=== PATIENT | male | born 1985 | race Hispanic/Latino ===

== ENCOUNTER → 2018-01-28 | Outpatient (REF) | payer OTHER ==
[2018-01-28 17:45] LABS: ALBUMIN 4.3 GM/DL (3.2-5.2); ALBUMIN/GLOBULIN RATIO 1.19 (1.00-1.93); ALKALINE PHOSPHATASE 78 U/L (45-117); ALT/SGPT 51 U/L (12-78); ANION GAP 10 MEQ/L (8-16); AST/SGOT 34 U/L (7-37); BILIRUBIN,TOTAL 0.4 MG/DL (0.2-1.0); BLOOD UREA NITROGEN 25 MG/DL (7-18); CALCIUM LEVEL 9.2 MG/DL (8.5-10.1); CARBON DIOXIDE LEVEL 26 MEQ/L (21-32); CHLORIDE LEVEL 103 MEQ/L (98-107); CHOLESTEROL LEVEL 190 MG/DL (<200); CREATININE FOR GFR 1.75 MG/DL (0.70-1.30); GLOMERULAR FILTRATION RATE 47.7 (>60); GLUCOSE, FASTING 102 MG/DL (70-100); HDL CHOLESTEROL 46 MG/DL (>40); NON-HDL-C 144 MG/DL; POTASSIUM SERUM 4.5 MEQ/L (3.5-5.1); SODIUM LEVEL 139 MEQ/L (136-145); TOTAL PROTEIN 7.9 GM/DL (6.4-8.2); TRIGLYCERIDES LEVEL 543 MG/DL (<150)
[2018-01-28 17:46] LABS: PTH INTACT 72.8 PG/ML (18.5-88.0)
== END ==
LOC: M SFHCPLAZ 15:03
DX: N18.3 Chronic kidney disease, stage 3 (moderate) (principal); E78.5 Hyperlipidemia, unspecified; E55.9 Vitamin D deficiency, unspecified

== ENCOUNTER → 2018-02-03 | Outpatient (CLI) | payer OTHER | LOC: M RAD 07:46 | DX: M54.5 Low back pain (principal); M51.34 Other intervertebral disc degeneration, thoracic region; M51.36 Other intervertebral disc degeneration, lumbar region; M51.37 Other intervertebral disc degeneration, lumbosacral region | CPT/HCPCS: 72110 ==

== ENCOUNTER → 2018-02-11 | Outpatient (CLI) | payer OTHER | LOC: M RAD 08:31 | DX: M25.572 Pain in left ankle and joints of left foot (principal) | CPT/HCPCS: 73610 ==

== ENCOUNTER → 2018-08-19 | Outpatient (CLI) | payer OTHER | LOC: M RAD 08:51 | DX: M51.36 Other intervertebral disc degeneration, lumbar region (principal); M51.26 Other intervertebral disc displacement, lumbar region; E88.2 Lipomatosis, not elsewhere classified | CPT/HCPCS: 72148 ==

== ENCOUNTER 2018-09-01 07:23 | Outpatient (RCR) | payer OTHER | END 2018-09-14 | LOC: M PT 07:23 | DX: Z51.89 Encounter for other specified aftercare (principal); M51.36 Other intervertebral disc degeneration, lumbar region | CPT/HCPCS: 97010 ==

== ENCOUNTER → 2018-11-30 | Outpatient (REF) | payer OTHER ==
[~2018-11-30] MED LIST: ACET500C OR; AMLO10TA OR; AMLO10TAB OR; CARV12.5 OR; HYDR25TA7 OR; LASI40TA OR; LISI40TA OR; No Historical Meds; SIMV20TA2 OR; SPIR50TA2 OR; chlorthalidone PO
[2018-11-30 10:19] LABS: BASO # 0.1 10^3/uL (0.0-0.2); BASO % 0.6 % (0.0-1.0); EOS # 0.2 10^3/uL (0.0-0.50); EOS % 2.3 % (0.0-3.0); HEMATOCRIT 43.9 % (42.0-52.0); HEMOGLOBIN 14.7 g/dl (13.5-17.5); LYMPH # 3.5 10^3/uL (1.5-4.5); MEAN CORPUSCULAR HEMOGLOBIN 29.1 pg (27.0-33.0); MEAN CORPUSCULAR HGB CONC 33.5 g/dl (32.0-36.5); MEAN CORPUSCULAR VOLUME 86.8 fl (80.0-96.0); MONO # 0.8 10^3/uL (0.0-0.8); MONO % 8.8 % (0.0-5.0); NEUTROPHILS # 4.2 10^3/uL (1.8-7.7); NEUTROPHILS % 47.8 % (36.0-66.0); PLATELET COUNT, AUTOMATED 284 10^3/uL (150-450); RED BLOOD COUNT 5.06 10^6/uL (4.30-6.10); WHITE BLOOD COUNT 8.8 10^3/uL (4.0-10.0)
[2018-11-30 10:21] LABS: APPEARANCE, URINE CLEAR (CLEAR); BACTERIA, URINE AUTO NEGATIVE (NEGATIVE); BILIRUBIN, URINE AUTO NEGATIVE (NEGATIVE); BLOOD, URINE BLOOD NEGATIVE (NEGATIVE); COLOR, URINE YELLOW (YELLOW); GLUCOSE, URINE (UA) AUTO NEGATIVE (NEGATIVE); KETONE, URINE AUTO NEGATIVE (NEGATIVE); LEUKOCYTE ESTERASE, URINE AUTO NEGATIVE (NEGATIVE); NITRITE, URINE AUTO NEGATIVE (NEGATIVE); PROTEIN, URINE AUTO NEGATIVE (NEGATIVE); RBC, URINE AUTO 3 /HPF (0-3); SPECIFIC GRAVITY URINE AUTO 1.015 (1.002-1.035); SQUAMOUS EPITHELIAL CELL UR AU 0 /HPF (0-6); UROBILINOGEN, URINE AUTO 0.2 mg/dL (0.0-2.0); WBC, URINE AUTO 0 /HPF (0-3)
[2018-11-30 10:42] LABS: BILIRUBIN,TOTAL 0.3 MG/DL (0.2-1.0); CALCIUM LEVEL 9.3 MG/DL (8.5-10.1); CHOLESTEROL RISK RATIO 3.536 (<5); CREATININE FOR GFR 1.56 MG/DL (0.70-1.30); GLOMERULAR FILTRATION RATE 54.2 (>60); MAGNESIUM LEVEL 2.1 MG/DL (1.8-2.4); POTASSIUM SERUM 4.4 MEQ/L (3.5-5.1); TOTAL PROTEIN 7.2 GM/DL (6.4-8.2)
[2018-11-30 10:50] LABS: MALB URINE SIEMENS 29.6 MG/L; MAU/CREAT RATIO 20.1 MCG/MG (0.0-30.0)
[2018-11-30 10:55] LABS: TOTAL 25(OH) VITAMIN D 65.2 NG/ML (30.0-100.0)
[2018-11-30 10:56] LABS: PTH INTACT 58.5 PG/ML (18.5-88.0)
== END ==
LOC: M SFHCPLAZ 08:35
PROVIDERS: ATTEND Nurse Practitioner Family
DX: N18.3 Chronic kidney disease, stage 3 (moderate) (principal); E78.5 Hyperlipidemia, unspecified; I12.9 Hypertensive chronic kidney disease with stage 1 through stage 4 chronic kidney disease, or unspecified chronic kidney disease; E55.9 Vitamin D deficiency, unspecified

== ENCOUNTER 2021-08-30 06:32 | Inpatient (IN) | payer OTHER ==
[2021-08-30] VITALS (8 sets, daily range): BP systolic 143–170; BP diastolic 67–98
[~2021-08-30] VITALS: Ht 175.3 cm; Wt 112.6 kg
--- OUTSIDE RECORDS SUMMARY | 2021-08-30 06:44 | CCD ---
Author Author [facility] Organization [facility] Address Unknown Phone Unavailable Support Name Relationship Address Phone Ashley Munoz DDS Next Of Kin [address] [place], [place] [phone] UE Next Of Kin Unknown Unavailable UNEMPLOYED Next Of Kin Unknown JAMESSHAHZAD WINNLY Next Of Kin [address] [place] [address] [address] [place] [address] DEIDRE COLLINS ECON [address] [place] [address] Unavailable Re-disclosure Warning The records that you are about to access may contain information from federally-assisted alcohol or drug abuse programs. If such information is present, then the following federally mandated warning applies: This information has been disclosed to you from records protected by federal confidentiality rules (42 CFR part 2). The federal rules prohibit you from making any further disclosure of this information unless further disclosure is expressly permitted by the written consent of the person to whom it pertains or as otherwise permitted by 42 CFR part 2. A general authorization for the release of medical or other information is NOT sufficient for this purpose. The Federal rules restrict any use of the information to criminally investigate or prosecute any alcohol or drug abuse patient.The records that you are about to access may contain highly sensitive health information, the redisclosure of which is protected by Article 27-F of the [facility] Public Health law. If you continue you may have access to information: Regarding HIV / AIDS; Provided by facilities licensed or operated by the [facility] Office of Mental Health; or Provided by the [facility] Office for People With Developmental Disabilities. If such information is present, then the following [facility] mandated warning applies: This information has been disclosed to you from confidential records which are protected by state law. State law prohibits you from making any further disclosure of this information without the specific written consent of the person to whom it pertains, or as otherwise permitted by law. Any unauthorized further disclosure in violation of state law may result in a fine or alf sentence or both. A general authorization for the release of medical or other information is NOT sufficient authorization for further disc losure. Medications No Information Insurance Providers Payer name Policy type / Coverage type Policy ID Covered republican ID Covered republican's relationship to anderson Policy Anderson Plan Information [facility] [id number] SP [id number] Managed Care - [facility] P [id number] S [id number] Managed Care - [facility] P [id number] S [id number] [facility] [id number] SP [id number] [facility] O [id number] S [id number] ANSI-Medicaid [id number] ANSI-Medicaid [id number] ANSI-Medicaid [id number] [facility] [id number] SP [id number] ANSI-Medicaid [id number] ANSI-Medicaid [id number] [facility]-Medicaid [id number] Problems, Conditions, and Diagnoses No Information Surgeries/Procedures No Information Results No Information Social History No Information
--- OUTSIDE RECORDS SUMMARY | 2021-08-30 07:43 | CCD ---
Author Author [facility] Organization [facility] Address Unknown Phone Unavailable Support Name Relationship Address Phone Ashley Munoz DDS Next Of Kin [address] [place], [place] [phone] UE Next Of Kin Unknown Unavailable UNEMPLOYED Next Of Kin Unknown DEIDRE COLLINS Next Of Kin [address] [place] [address] [place] [address] DEIDRE COLLINS ECON [address] [place] [address] Unavailable Re-disclosure Warning The records that you [...] is protected by Article 27-F of the [facility] Public Health law. If you continue you may have access to information: Regarding HIV / AIDS; Provided by facilities licensed or operated by the [facility] Office of Mental Health; or Provided by the [facility] Office for People With Developmental Disabilities. If such information is present, then the following [facility] mandated warning applies: This information has been [...] law may result in a fine or shelter sentence or both. A general authorization for the release of medical or other information is NOT sufficient authorization for further disc losure. Medications No Information Insurance Providers Payer name Policy type / Coverage type Policy ID Covered democrat ID Covered democrat's relationship to anderson Policy Anderson Plan Information [facility] [id number] SP [id number] Managed Care - [facility] P [id number] S [id number] Managed Care - [facility] P [id number] S [id number] [facility] [id number] SP [id number] [facility] O [id number] S [id number] ANSI-Medicaid [id number] ANSI-Medicaid [id number] ANSI-Medicaid [id number] [facility] [id number] SP [id number] ANSI-Medicaid [id number] ANSI-Medicaid [id number] [facility]-Medicaid [id number] Problems, Conditions, and Diagnoses No Information Surgeries/Procedures No Information Results No Information Social History No Information
--- NOTE | 2021-08-30 08:13 | ECGEPIP ---
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
[2021-08-30 08:16] LABS: BASO # 0.1 10^3/uL (0.0-0.2); EOS # 0.2 10^3/uL (0.0-0.5); EOS % 2.4 % (0.0-3.0); HEMOGLOBIN 18.3 g/dl (13.5-17.5); LYMPH # 2.5 10^3/uL (1.5-5.0); MEAN CORPUSCULAR HEMOGLOBIN 29.6 pg (27.0-33.0); MEAN CORPUSCULAR HGB CONC 35.2 g/dl (32.0-36.5); MEAN CORPUSCULAR VOLUME 84.1 fl (80.0-96.0); MONO # 0.6 10^3/uL (0.0-0.8); MONO % 6.8 % (2.0-8.0); NEUTROPHILS # 4.9 10^3/uL (1.5-8.5); NEUTROPHILS % 59.4 % (36.0-66.0); PLATELET COUNT, AUTOMATED 240 10^3/uL (150-450); RED BLOOD COUNT 6.18 10^6/uL (4.30-6.10); WHITE BLOOD COUNT 8.2 10^3/uL (4.0-10.0)
[2021-08-30 08:27] LABS: INR 0.92; PROTHROMBIN TIME 12.8 SECONDS (12.7-14.5)
[2021-08-30 08:28] LABS: PARTIAL THROMBOPLASTIN TIME 29.5 SECONDS (25.9-37.0)
[2021-08-30] MEDS: niCARdipine IV 40 MG in IV 1 EA IV SCH ×4 (08:29→23:59)
[2021-08-30 08:38] LABS: BLOOD UREA NITROGEN 23 MG/DL (7-18); CALCIUM LEVEL 8.9 MG/DL (8.5-10.1); CARBON DIOXIDE LEVEL 30 MEQ/L (21-32); CHLORIDE LEVEL 107 MEQ/L (98-107); CPK CREATINE PHOSPHOKINASE 296 U/L (39-308); CREATININE FOR GFR 1.87 MG/DL (0.70-1.30); GLOMERULAR FILTRATION RATE 43.2 (>60); GLUCOSE, FASTING 87 MG/DL (70-100); MB/CK RELATIVE INDEX 0.68 (< OR =4); SODIUM LEVEL 140 MEQ/L (136-145); TROPONIN I < 0.02 NG/ML (< 0.10)
--- NOTE | 2021-08-30 08:44 | REPVR ---
PROCEDURE INFORMATION: Exam: CT Head Without Contrast Exam date and time: 08/30/2021 7:02 AM Age: 36 years old Clinical indication: Numbness / parasthesia; Additional info: Right sided parasthesia x 24 hours TECHNIQUE: Imaging protocol: Computed tomography of the head without contrast. Radiation optimization: All CT scans at this facility use at least one of these dose optimization techniques: automated exposure control; mA and/or kV adjustment per patient size (includes targeted exams where dose is matched to clinical indication); or iterative reconstruction. COMPARISON: No relevant prior studies available. FINDINGS: Brain: Examination of the brain demonstrates normal structure and attenuation.The cortical salas / white matter interfaces are preserved throughout the brain.No acute infarction, masses or hemorrhage is seen. Cerebral ventricles: The ventricular system is not dilated and is appropriate for the patient's age. Paranasal sinuses: Visualized sinuses are unremarkable. No fluid levels. Mastoid air cells: Visualized mastoid air cells are well aerated. Bones/joints: Unremarkable. No acute fracture. Soft tissues: Unremarkable. IMPRESSION: 1. No acute infarction, masses or hemorrhage is seen. No acute intracranial abnormality is identified. 2. Estefani Stroke Program Early CT Score (ASPECTS) = 10 Electronically signed by: Federico Burrell On 08/30/2021 08:43:21 AM
--- NOTE | 2021-08-30 08:46 | REPVR ---
PROCEDURE INFORMATION: Exam: XR Chest Exam date and time: 08/30/2021 6:56 AM Age: 36 years old Clinical indication: Chest wall pain; Additional info: CVA TECHNIQUE: Imaging protocol: XR of the chest. Views: 1 view. COMPARISON: CR Shoulder, complete 02/03/2018 8:24 AM FINDINGS: Lungs: No acute infiltrate is seen. Pleural spaces: No pneumothorax or pleural effusion is seen. Heart/Mediastinum: No cardiomegaly. Bones/joints: The visualized osseous structures are unremarkable. No acute fracture or dislocation is seen. IMPRESSION: No acute infiltrate, pneumothorax or pleural effusion is seen. Electronically signed by: Federico Burrell On 08/30/2021 08:46:23 AM
[2021-08-30] MEDS ORDERED: ASPIRIN 325 MG TAB PO SCH (09:00)
[2021-08-30] MEDS ORDERED: ASPIRIN 81 MG CHEW TABLET PO ONE (09:20)
[2021-08-30] MEDS ORDERED: HOME MED LIST COMPLETE! XX SCH (09:45)
--- NOTE | 2021-08-30 10:25 | HPEPDOC ---
[facility] Medical History & Physical Date of Admission Aug 30, 2021 Date of Service: Aug 30, 2021 History and Physical CHIEF COMPLAINT: " My right side went numb and I was unsteady" HISTORY OF PRESENT ILLNESS: 36-year-old male with a past medical history of hypertension, hyperlipidemia, right eye blindness (has not seek medical attention for this), and chronic kidney disease presented to emergency room department with complaints of right- sided weakness, qbia-rgk-qeadzbd, and unsteady gait. On 08/29 around noon patient was sitting on his sofa and began to feel numb in his entire right arm as well as right leg and when he tried to stand he felt unsteady. He thought the symptoms would resolve therefore did not seek medical attention. However, this morning he was spearing seeing same symptoms therefore came to the emergency room department for further evaluation. Patient reports he stopped seeing his primary care physician after he lost weight and was feeling better he thought he did not need to be on any me dications. In the emergency room department he was hypertensive and placed on nicardipine drip and was admitted to rule out stroke. PAST MEDICAL HISTORY: 1. Hypertension 2. CKD 3. Right eye blindness, not medically evaluated. 4. HLD PAST SURGICAL HISTORY: 1. Right ankle fracture in 2000 SOCIAL HISTORY: Lives at home with his significant other (not but has been with her for 14 years). Smokes 2 cigars/day. Denies drinking or recreational drug use FAMILY HISTORY: Noncontributory ALLERGIES: Please see below. REVIEW OF SYSTEMS: 10 point review of system was negative except for what is noted in the HPI HOME MEDICATIONS: Please see below. PHYSICAL EXAMINATION: VITAL SIGNS: Please see below General: Lying in bed, no acute distress Head/Neck/Throat: Trachea midline, mucous membranes moist Eyes: Sclera anicteric, no erythema or discharge appreciated bilateral Thorax: Normal respiratory effort on room air, lungs clear to auscultation bilaterally, no wheezes/rales/rhonchi Cardiovascular: Normal rate, regular rhythm, normal S1, S2; no S3, S4, rubs/gallops/murmurs Abdomen: Bowel sounds present, soft/nontender/nondistended Genitourinary: No CVA tenderness, no Sampson in place Musculoskeletal: Moving all extremities, no edema Skin: Warm, dry Neurologic: AAOx3. Cranial nerves II to XII intact. Strength in the left upper and lower extremities 5/5. Within the right upper and lower extremity is 4/5. Cerebellar examination including srxcdy-wn-vehq, and mudz-cp-njdd intact however slower on the right. Swelling appreciated when patient is asked to stand. Patellar and biceps reflex 2+. Sensation to gross touch intact. LABORATORY DATA: See below. IMAGING: Please see imaging section MICROBIOLOGY: Please see below. ASSESSMENT/PLAN: #CVA -Acute lacunar infarct appreciated on MRI and acute left pontine infarct. There is a small focal of increased signal in the bilateral basal ganglia, bilateral frontal and parietal subcortical and deep white matter which is likely related to his uncontrolled blood pressure. -MRA did not show any stenosis or occlusion. Ultrasound of carotid arteries is pending. -Patient was started on nicardipine drip due bp of 251/163, goal to keep bp below 220/120 but allow for permissive hypertension - goal 160-180 systolic blood pressure for the first 24 hours. -Echocardiogram with agitated saline to rule out PFO. -PT/OT -Aspirin, statin -Follow-up on TSH and B12 #Hypertensive emergency -Plan as above #Chronic kidney disease -Baseline creatinine is around 1.5-1.9. Today, creatinine is 1.87. When nephrotoxic medications. Follow-up on renal ultrasound. #Hyperlipidemia -Follow-up on lipid profile. Continue statin therapy. #Right eye blindness -He has had this for approximately a year it started off his progressive but he did not seek any medical attention. #DVT prophylaxis -Heparin subcu Vital Signs Vital Signs Date Time Temp Pulse Resp B/P (MAP) Pulse Ox O2 Delivery O2 Flow Rate FiO2 08/30/21 10:17 105 08/30/21 10:00 192/117 (142) 08/30/21 08:02 98 08/30/21 06:35 97.6 18 Room Air Laboratory Data Labs 24H Laboratory Tests 2 08/30/21 07:44: Immature Granulocyte % (Auto) 0.4, Neutrophils (%) (Auto) 59.4, Lymphocytes (%) (Auto) 30.0, Monocytes (%) (Auto) 6.8, Eosinophils (%) (Auto) 2.4, Basophils (%) (Auto) 1.0, Neutrophils # (Auto) 4.9, Lymphocytes # (Auto) 2.5, Monocytes # (Auto) 0.6, Eosinophils # (Auto) 0.2, Basophils # (Auto) 0.1, Nucleated Red Blood Cells % (auto) 0.0, Prothrombin Time 12.8, Prothromb Time International Ratio 0.92, Activated Partial Thromboplast Time 29.5, Anion Gap 3L, Glomerular Filtration Rate 43.2L, Calcium Level 8.9, Total Creatine Kinase 296, Creatine Kinase MB 2.0, Creatine Kinase MB Relative Index 0.68, Troponin I < 0.02 08/30/21 09:15: CBC/BMP Laboratory Tests 08/30/21 07:44 Home Medications No Active Prescriptions or Reported Meds Allergies Coded Allergies: No Known Allergies (Unverified , 08/30/21) A-FIB/CHADSVASC A-FIB History Current/History of A-Fib/PAF?: No AI GUTIERREZ M.D. Aug 30, 2021 10:25
[2021-08-30 10:35] LABS: RSV AMPLIFICATION NEGATIVE (NEGATIVE)
--- OUTSIDE RECORDS SUMMARY | 2021-08-30 10:43 | CCD ---
Author Author [facility] Organization [facility] Address Unknown Phone Unavailable Support Name Relationship Address Phone Ashley Munoz DDS Next Of Kin [address] [place], [place] [phone] UE Next Of Kin Unknown Unavailable UNEMPLOYED Next Of Kin Unknown JAMESTATUM DEIDRE Next Of Kin [address] [place] [address] [place] [address] SHAHZAD COLLINSLY ECON [address] [place] [address] Unavailable Re-disclosure Warning The records that you [...] is protected by Article 27-F of the [facility] Public Health law. If you continue you may have access to information: Regarding HIV / AIDS; Provided by facilities licensed or operated by the [facility] Office of Mental Health; or Provided by the [facility] Office for People With Developmental Disabilities. If such information is present, then the following [facility] mandated warning applies: This information has [...] law may result in a fine or nursing home sentence or both. A general authorization for the release of medical or other information is NOT sufficient authorization for further disc losure. Medications No Information Insurance Providers Payer name Policy type / Coverage type Policy ID Covered alliance party ID Covered alliance party's relationship to anderson Policy Anderson Plan Information [facility] [id number] SP [id number] [facility] P [id number] S [id number] Managed Care - [facility] P [id number] S [id number] ANSI-Medicaid [id number] [facility] O [id number] S [id number] [facility] [id number] [facility] [id number] [facility] [id number] [facility] [id number] SP [id number] ANSI-Medicaid [id number] [facility] [id number] SP [id number] ANSI-Medicaid [id number] Problems, Conditions, and Diagnoses No Information Surgeries/Procedures No Information Results No Information Social History No Information
[2021-08-30] MEDS: ATORVASTATIN 20 MG TAB PO SCH (10:54)
--- NOTE | 2021-08-30 12:21 | REPVR ---
PROCEDURE INFORMATION: Exam: MR Head Without Contrast Exam date and time: 08/30/2021 12:07 PM Age: 36 years old Clinical indication: Speech disturbance; Slurred speech; Additional info: CVA TECHNIQUE: Imaging protocol: MR of the head without contrast. COMPARISON: CT Head without contrast 08/30/2021 6:58 AM FINDINGS: Brain: Examination reveals a tiny 4 mm rounded focus of restricted diffusion in the right high frontal parasagittal subcortical white matter series 404, image 26 consistent with tiny acute lacunar infarction. No other areas of restricted diffusion are seen. No acute hemorrhage, mass or midline shift is noted. Examination reveals several small focal areas of increased T2 signal in bilateral basal ganglia , bilateral frontal and parietal subcortical and deep white matter. These are nonspecific and could be secondary to chronic migraine headache, vasculitis, Lyme disease, demyelination and focal areas of chronic ischemia. On gradient echo imaging, no susceptibility changes are seen to represent parenchymal calcification or degraded blood products. The cortical salas / white matter interfaces are preserved throughout the brain.Intracranial flow voids are well maintained. Cerebral ventricles: The ventricular system is not dilated and is appropriate for the patient's age. Bones/joints: Unremarkable. Paranasal sinuses: Normal as visualized. No acute sinusitis. Mastoid air cells: Normal as visualized. No mastoid effusion. Orbital cavity: Unremarkable. Soft tissues: Unremarkable. IMPRESSION: 1. Examination reveals a tiny 4 mm rounded focus of restricted diffusion in the right high frontal parasagittal subcortical white matter series 404, image 26 consistent with tiny acute lacunar infarction. No other areas of restricted diffusion are seen. No acute hemorrhage, mass or midline shift is noted. 2. Examination reveals several small focal areas of increased T2 signal in bilateral basal ganglia , bilateral frontal and parietal subcortical and deep white matter. These are nonspecific and could be secondary to chronic migraine headache, vasculitis, Lyme disease, demyelination and focal areas of chronic ischemia. Electronically signed by: Federico Burrell On 08/30/2021 12:21:04 PM
--- NOTE | 2021-08-30 12:27 | REPVR ---
PROCEDURE INFORMATION: Exam: MRA Head Without Contrast; Arteriography Exam date and time: 08/30/2021 12:07 PM Age: 36 years old Clinical indication: Speech disturbance; Slurred speech; Additional info: CVA TECHNIQUE: Imaging protocol: Magnetic resonance angiography head without contrast. Exam focused on the arteries. 3D rendering (Not supervised by radiologist): MIP and/or 3D reconstructed images were created by the technologist. COMPARISON: CT Head without contrast 08/30/2021 6:58 AM FINDINGS: ANTERIOR CIRCULATION: Right internal carotid artery: Intracranial segment is patent with no significant stenosis. No aneurysm. Right middle cerebral artery: No occlusion or significant stenosis. No aneurysm. Right anterior cerebral artery: No occlusion or significant stenosis. No aneurysm. Left internal carotid artery: Intracranial segment is patent with no significant stenosis. No aneurysm. Left middle cerebral artery: No occlusion or significant stenosis. No aneurysm. Left anterior cerebral artery: No occlusion or significant stenosis. No aneurysm. POSTERIOR CIRCULATION: Right vertebral artery: No occlusion or significant stenosis. No aneurysm. Left vertebral artery: No occlusion or significant stenosis. No aneurysm. Basilar artery: No occlusion or significant stenosis. No aneurysm. Right posterior cerebral artery: No occlusion or significant stenosis. No aneurysm. Left posterior cerebral artery: No occlusion or significant stenosis. No aneurysm. IMPRESSION: No stenosis.No occlusion. No aneurysm. Electronically signed by: Federico Burrell On 08/30/2021 12:27:43 PM
[2021-08-30] MEDS: HEPARIN SOD (PORCINE) 5000UNITS/ML 1ML VIAL/SYRINGE SC SCH ×2 (13:59→22:00)
[2021-08-30 17:01] LABS: CHOLESTEROL RISK RATIO 5.489 (<5); FREE T4 1.04 NG/DL (0.76-1.46); THYROID STIMULATING HORMONE 1.21 uIU/ML (0.358-3.740)
[2021-08-30 17:10] LABS: HEMOGLOBIN A1c 4.8 %
--- NOTE | 2021-08-30 22:09 | IPNPDOC ---
Text Note Date of Service The patient was seen on 08/30/21. NOTE Per d/w VICKY Gould because the patient is on a titratable nicardipine drip we will have to upgrade him to ICU status. VS,Fishbone, I+O VS, Fishbone, I+O Laboratory Tests 08/30/21 07:44 Vital Signs Date Time Temp Pulse Resp B/P (MAP) Pulse Ox O2 Delivery O2 Flow Rate FiO2 08/30/21 21:10 99.0 87 18 170/98 (122) 96 Room Air AB AGUILAR MD Aug 30, 2021 22:09
[2021-08-31] VITALS (44 sets, daily range): BP systolic 126–196; BP diastolic 56–129
[2021-08-31 05:02] LABS: HEMATOCRIT 49.6 % (42.0-52.0); HEMOGLOBIN 17.4 g/dl (13.5-17.5); MEAN CORPUSCULAR HEMOGLOBIN 29.4 pg (27.0-33.0); MEAN CORPUSCULAR HGB CONC 35.1 g/dl (32.0-36.5); MEAN CORPUSCULAR VOLUME 83.8 fl (80.0-96.0); PLATELET COUNT, AUTOMATED 227 10^3/uL (150-450); RED BLOOD COUNT 5.92 10^6/uL (4.30-6.10)
[2021-08-31 05:21] LABS: CALCIUM LEVEL 8.7 MG/DL (8.5-10.1); CREATININE FOR GFR 1.76 MG/DL (0.70-1.30); GLOMERULAR FILTRATION RATE 46.4 (>60); MAGNESIUM LEVEL 2.1 MG/DL (1.8-2.4); PHOSPHORUS LEVEL 3.1 MG/DL (2.5-4.9); POTASSIUM SERUM 3.4 MEQ/L (3.5-5.1)
[2021-08-31] MEDS: HEPARIN SOD (PORCINE) 5000UNITS/ML 1ML VIAL/SYRINGE SC SCH ×3 (05:49→21:31)
[2021-08-31] MEDS: ASPIRIN 81MG ENTERIC TABLET PO SCH (08:00)
[2021-08-31] MEDS: ATORVASTATIN 20 MG TAB PO SCH (08:00)
[2021-08-31] MEDS ORDERED: POTASSIUM CHLORIDE 10MEQ SR TABLET PO ONE (09:00)
--- NOTE | 2021-08-31 09:12 | REP ---
INDICATION: cva COMPARISON: None. TECHNIQUE: Damon scale and color Doppler evaluation using linear high frequency transducer Findings: FINDINGS: Two-dimensional damon scale and color images demonstrate normal arterial lumen with laminar flow and no appreciable narrowing. Color Doppler interrogation demonstrates normal arterial wave patterns and velocities with no significant spectral broadening. Normal flow direction is appreciated in the bilateral vertebral arteries. ICA peak systolic velocity: Right 53.4 cm/s; Left 49.6 cm/s ICA diastolic velocity: Right 19.8 cm/s; Left 19.8 cm/s ECA peak systolic velocity: Right 91.2 cm/s; Left 105.1 cm/s CCA peak systolic velocity: Right 73.0 cm/s; Left 71.0 cm/s ICA/CCA ratio: Right 0.73 cm/s; Left 0.70 cm/s IMPRESSION: No hemodynamically significant areas of narrowing or stenosis appreciated. Based on set standards narrowing falls within the normal range. <Electronically signed by Shad Quinn > 08/31/21 0909
--- NOTE | 2021-08-31 09:16 | REP ---
INDICATION: R/O RENAL STENOSIS COMPARISON: 05/14/2011 TECHNIQUE: Real time trvais scale ultrasound examination using curved array transducer followed by color Doppler evaluation of the renal vasculature. FINDINGS: The bilateral kidneys are normal in appearance. Right kidney measures 10.4 x 5.8 x 5.2 cm. Left kidney measures 11.9 x 5.4 x 6.1 cm. No evidence for hydronephrosis, nephrolithiasis, cystic or renal mass lesion. Bladder is under distended. Color Doppler evaluation. Peak aortic velocity: 78 centimeters/second RIGHT KIDNEY Renal arterial velocity: 77 centimeters/second Renal-aortic ratio: 1.0 Intrarenal resistive indices: 0.50-0.61 Intrarenal acceleration times: 0.042-0.058 LEFT KIDNEY Renal arterial velocity: 76 centimeters/second Renal-aortic ratio: 1.0 Intrarenal resistive indices: 0.52-0.60 Intrarenal acceleration times: 0.042-0.061 IMPRESSION: 1. Kidneys appear normal. 2. Doppler interegation without sonographic evidence for renal arterial stenosis. <Electronically signed by Shad Quinn > 08/31/21 0912
[2021-08-31] MEDS ORDERED: VALSARTAN 80 MG TAB (DIOVAN) PO ONE ×2 (10:00→12:55)
--- NOTE | 2021-08-31 10:59 | IPNPDOC ---
Subjective Date Seen The patient was seen on 08/31/21. Subjective Chief Complaint/HPI Patient was seen and examined at bedside this morning. He continues to have some right-sided weakness, the numbness in his right upper extremities has decreased except in his fingertips of his right hand. He denies headaches, blurry vision, chest pain, shortness of breath, abdominal pain, nausea, vomiting, problems with urination or bowel movements. Objective Physical Examination Other physical findings General: Lying in bed, no acute distress Head/Neck/Throat: Trachea midline, mucous membranes moist Eyes: Sclera anicteric, PERRLA Thorax: Normal respiratory effort on room air, lungs clear to auscultation bilaterally, no wheezes/rales/rhonchi Cardiovascular: Normal rate, regular rhythm, normal S1, S2; no S3, S4, rubs/gallops/murmurs Abdomen: Bowel sounds present, soft/nontender/nondistended Genitourinary: No CVA tenderness, no Sampson in place Musculoskeletal: Moving all extremities, no edema Skin: Warm, dry Neurologic: AAOx3, speech fluent and goal-directed. Cranial nerves II to XII intact. Right upper and lower extremities 4/5, sensation to gross touch intact. Left upper extremity is 5/5 with sensation to gross touch intact. Assessment /Plan Assessment #CVA -Acute lacunar infarct appreciated on MRI and acute left pontine infarct. There is a small focal of increased signal in the bilateral basal ganglia, bilateral frontal and parietal subcortical and deep white matter which is likely related to his uncontrolled blood pressure. -MRA did not show any stenosis or occlusion. Ultrasound of carotid arteries is pending. -Echocardiogram with agitated saline to rule out PFO pending. -PT/OT evaluation pending -Aspirin, statin -Neurology following and appreciate input. #Hypertensive emergency -Initiate amlodipine as well as losartan in hopes of taking patient off nicardipine drip. #Chronic kidney disease -Baseline creatinine is around 1.5-1.9. Today, creatinine is 1.76. When nephrotoxic medications. Renal ultrasound noted no stenosis #Hyperlipidemia -Continue statin therapy. #Right eye blindness -He has had this for approximately a year it started off his progressive but he did not seek any medical attention. Encouraged to follow-up with cafeteria server as an outpatient. #DVT prophylaxis -Heparin subcu Plan/VTE VTE Prophylaxis Ordered?: Yes VS, I&O, 24H, Richy Vital Signs/I&O Vital Signs Date Time Temp Pulse Resp B/P (MAP) Pulse Ox O2 Delivery O2 Flow Rate FiO2 08/31/21 08:00 65 164/105 08/31/21 07:30 97.0 15 95 Room Air I&O- Last 24 Hours up to 6 AM 08/31/21 06:00 Intake Total 1019 ml Output Total 1625 ml Balance -606 ml Laboratory Data 24H LABS Laboratory Tests 2 08/30/21 16:03: Estimated Mean Plasma Glucose 91, Hemoglobin A1c 4.8, Troponin I 0.04#, Triglycerides Level 171H, Total Cholesterol 269H, LDL Cholesterol 186H, Non-HDL Cholesterol (LDL + VLDL) 220, Total HDL Cholesterol 49, Cholesterol/HDL Ratio 5.489H, Thyroid Stimulating Hormone (TSH) 1.210, Free Thyroxine 1.04 08/30/21 20:01: Troponin I 0.08# 08/31/21 04:09: Troponin I 0.08, Nucleated Red Blood Cells % (auto) 0.0, Anion Gap 5L, Glomerular Filtration Rate 46.4L, Calcium Level 8.7, Phosphorus Level 3.1, Magnesium Level 2.1 CBC/BMP Laboratory Tests 08/31/21 04:09 AI GUTIERREZ M.D. Aug 31, 2021 10:59
[2021-08-31] MEDS: VALSARTAN 80 MG TAB (DIOVAN) PO SCH (11:09)
[2021-08-31] MEDS ORDERED: **hydrALAZINE** 50 MG TAB PO SCH (12:00)
[2021-08-31] MEDS ORDERED: CHLORTHALIDONE 25 MG TAB PO ONE ×2 (12:55→18:00)
--- NOTE | 2021-08-31 15:52 | ECHO ---
ECHOCARDIOGRAM DATE OF PROCEDURE: 08/30/2021 Age: 36 Gender: Male Height: 69 inches Weight: 240 pounds Body Surface Area: 2.23 m2 PATIENT LOCATION: Emergency room. REFERRING PHYSICIAN: Kuldeep Martin M.D. INDICATION: Questionable cerebrovascular accident (CVA), rule out cardiac source of embolic material. MEASUREMENTS: 2D Measurements: RV - 4.2 cm LV - 5.4 cm Septum 1.5 cm Posterior wall 1.5 cm Aortic root 4.1 cm LA - 4.9 cm LVEF 75% Doppler Measurements: AV - 1.56 m/sec LVOT - 1.27 m/sec MV-E 64, A 95, EA ratio 0.7 Early mitral deceleration time 148 msec E prime medial 4.4 A prime medial 15 E prime lateral 4 Average E/E prime ratio 15.2/PCWP - 20.8 mmHg PV - 1.05 m/sec Pulmonary artery acceleration time 99 msec PASP 37 mmHg IVC - 1.6 cm COMMENTS: Normal sinus rhythm without intraventricular conduction disturbance. M-mode and 2-dimensional echocardiography was performed with pulse, continuous wave, color flow and tissue Doppler studies. Left ventricular cavity size upper limits of normal with moderate symmetrical left ventricular hypertrophy. Hyperkinetic left ventricular wall motion. Moderately dilated left atrium with grade 1 left ventricular (LV) diastolic dysfunction and elevated mean left atrial pressure. Right heart chamber sizes were upper limits of normal with hyperkinetic right ventricular free wall motion. Current estimated pulmonary arterial pressure was mildly increased. Normal inferior vena cava (IVC) size and collapse against an elevated central venous pressure. Mildly dilated aortic root, but normal ascending diameter. Normal appearing and functioning valvular structures. No apparent intracardiac mass or pericardial effusion.
[2021-08-31] MEDS: **hydrALAZINE** 50 MG TAB PO SCH ×2 (16:58→21:26)
[2021-08-31] MEDS ORDERED: minoxidiL 2.5 MG TAB PO SCH (21:00)
--- NOTE | 2021-08-31 21:33 | CR ---
CONSULTATION DATE: 08/31/2021 REFERRING PHYSICIAN: Dr. Kuldeep Martin CONSULTING PHYSICIAN: Dr. Jason Gomez REASON FOR CONSULTATION: Right sided numbness, weakness, unsteadiness and difficulty speaking. HISTORY OF PRESENT ILLNESS: The patient is a 36-year-old male who has a history of hypertension, dyslipidemia, right eye blindness, chronic kidney disease, who presented to the Emergency Department with complaints of right sided weakness, numbness and tingling of the right arm and leg, unsteady gait and difficulty with speech at times. This happened on August 29, 2021 around noontime and the patient was sitting on his sofa and began to suddenly feel right sided numbness, weakness, difficulty walking and trouble with speech. He thought that his symptoms would resolve and did not seek medical attention. The next morning when he woke up he had the same symptoms and came to the Emergency Department. The patient had a history of hypertension and was taking medication. He lost 80 pounds and felt that he did not need blood pressures medications anymore and he stopped taking blood pressure medications a year ago. He has visual loss in his right eye which has been progressive over the last one year. Over the last couple of months he cannot see anything at all with his right eye. He also has drooping of his right eyelid. This has been going on for one year. She states that he is going to see an eye doctor in the near future. He also used to see a kidney specialist which he believes with Dr. Grimm. He has not followed there either. He denies any headaches, neck or back pain, dysphagia, dysarthria, diplopia, urinary incontinence. In the Emergency Department he was found to be extremely hypertensive and Nicardipine drip was initiated to control his blood pressure. I was contacted and recommended admission for stroke and hypertensive emergency. His blood pressure in the Emergency Department was 251/163. PAST MEDICAL HISTORY: The patient's past medical history is significant for: 1. Hypertension. 2. Chronic kidney disease. 3. Right eye blindness with right eyelid drooping. 4. Dyslipidemia. 5. Right ankle fracture. ALLERGIES: NONE. HOME MEDICATIONS: None. SOCIAL HISTORY: The patient lives home with his girlfriend. He smokes two cigars a day. He denies alcohol or illicit drugs. FAMILY HISTORY: Noncontributory. REVIEW OF SYSTEMS: All systems were reviewed and found to be noncontributory except as mentioned in the history of present illness. PHYSICAL EXAMINATION: VITAL SIGNS: Temperature is 97, pulse 67, respiratory rate 15, blood pressure 164/105, which is significantly better compared to admission when it was 252/163. HEART: Regular rate and rhythm. LUNGS: Clear to auscultation. ABDOMEN: Soft, nontender, nondistended. EXTREMITIES: No pedal edema. MUSCULOSKELETAL: No abnormalities. SKIN: No rash. No signs of meningeal irritation. NEUROLOGICAL: The patient is awake, alert, oriented to place, person and time. Normal speech, comprehension and repetition. The extraocular muscles are intact. No focal weakness. Tongue and uvula are midline. Strength is 5/5 on the left side. Right hand strength is 4/5 with slowing of rapid finger movements. The rest of the strength in the right arm and leg is 5/5. He has right sided pronator drift. He has minimal dysmetria on the right side. He has mild difficulty doing tandem walking. His gait is otherwise unremarkable. DIAGNOSTIC STUDIES: MRI scan of the brain was reviewed and showed a clear left posterior/lateral paramedian acute ischemic stroke and a small right frontal acute ischemic stroke. The radiologist only reported right frontal small ischemic stroke which would not explain his right sided symptoms. He also had small vessel ischemic disease of the brain. MRA brain and carotid ultrasound were normal. Telemetry monitoring reveals a normal sinus rhythm. Renal ultrasound showed normal kidneys and renal arteries. LABORATORY DATA: Total cholesterol was 269 with LDL 186. Creatinine is 1.7 with BUN 26, GFR 46.4. CBC is normal. ASSESSMENT: 1. Acute left pontine paramedian/posterolateral acute ischemic stroke. This is the cause of his right sided symptoms along with gait and speech difficulty. 2. Tiny right fontal ischemic acute stroke, likely asymptomatic. 3. Small vessel ischemic disease of the brain. 4. Uncontrolled hypertension. 5. Chronic kidney disease. 6. Right eye visual loss and right eyelid drooping for the last one year, for which he should see Ophthalmology. PLAN: 1. The patient should quit smoking. 2. Echocardiogram. 3. Continue to telemetry monitoring. 4. Physical and occupational therapy. 5. Aspirin 81 mg p.o. daily. 6. Atorvastatin 80 mg p.o. daily and his dose can be adjusted in a couple of months based on his LDL and total cholesterol. 7. Close follow up with Ophthalmology, Nephrology and primary care physician. 8. Keep blood pressure below 180/90 in the hospital and terminal worker target blood pressure should be below 130/80. 9. Blood test to rule out coagulopathy and vasculopathy. His uncontrolled hypertension is likely the strongest risk factor for his strokes. 10. Follow with us in 1-2 weeks after hospital discharge.
[2021-08-31] MEDS: SPIRONOLACTONE 12.5MG PER 1/2 TABLET PO SCH (23:11)
[2021-09-01] VITALS (13 sets, daily range): BP systolic 130–197; BP diastolic 73–118
[2021-09-01] MEDS: HEPARIN SOD (PORCINE) 5000UNITS/ML 1ML VIAL/SYRINGE SC SCH ×3 (05:42→20:26)
[2021-09-01 05:53] LABS: HEMATOCRIT 54.2 % (42.0-52.0); HEMOGLOBIN 18.7 g/dl (13.5-17.5); MEAN CORPUSCULAR HEMOGLOBIN 29.7 pg (27.0-33.0); MEAN CORPUSCULAR HGB CONC 34.5 g/dl (32.0-36.5); PLATELET COUNT, AUTOMATED 261 10^3/uL (150-450); WHITE BLOOD COUNT 9.5 10^3/uL (4.0-10.0)
[2021-09-01 06:22] LABS: CREATININE FOR GFR 1.69 MG/DL (0.70-1.30); GLOMERULAR FILTRATION RATE 48.6 (>60); MAGNESIUM LEVEL 2.2 MG/DL (1.8-2.4); PHOSPHORUS LEVEL 3.3 MG/DL (2.5-4.9); POTASSIUM SERUM 4.3 MEQ/L (3.5-5.1)
[2021-09-01] MEDS ORDERED: LABETALOL 100MG TAB PO SCH (09:00)
[2021-09-01] MEDS ORDERED: CHLORTHALIDONE 25 MG TAB PO SCH (09:00)
[2021-09-01] MEDS ORDERED: VALSARTAN 80 MG TAB (DIOVAN) PO SCH (09:00)
[2021-09-01] MEDS: ATORVASTATIN 20 MG TAB PO SCH (09:21)
[2021-09-01] MEDS: SPIRONOLACTONE 12.5MG PER 1/2 TABLET PO SCH (09:22)
[2021-09-01] MEDS: VALSARTAN 80 MG TAB (DIOVAN) PO SCH ×2 (09:23→20:24)
[2021-09-01] MEDS: ASPIRIN 81MG ENTERIC TABLET PO SCH (09:24)
[2021-09-01] MEDS: **hydrALAZINE** 50 MG TAB PO SCH (09:24)
[2021-09-01] MEDS ORDERED: VALSARTAN 80 MG TAB (DIOVAN) PO ONE (11:15)
[2021-09-01] MEDS: minoxidiL 2.5 MG TAB PO SCH ×2 (12:20→20:30)
[2021-09-01] MEDS ORDERED: CHLORTHALIDONE 25 MG TAB PO ONE (13:20)
--- NOTE | 2021-09-01 13:54 | IPNPDOC ---
Subjective Date Seen The patient was seen on 09/01/21. Subjective Chief Complaint/HPI Patient seen and examined at bedside this morning. He was asking when he would be able to go home and had no new complaints. Was explained that his blood pressure still uncontrolled despite being on several antihypertensive medications. He denied headaches, blurry vision, chest pain, palpitations, abdominal pain, nausea, vomiting, problems with urination or bowel movements. Objective Physical Examination Other physical findings General: Lying in bed, no acute distress Head/Neck/Throat: Trachea midline, mucous membranes moist Eyes: Sclera anicteric, PERRLA Thorax: Normal respiratory effort on room air, lungs clear to auscultation bilaterally, no wheezes/rales/rhonchi Cardiovascular: Normal rate, regular rhythm, normal S1, S2; no S3, S4, rubs/gallops/murmurs Abdomen: Bowel sounds present, soft/nontender/nondistended Genitourinary: No CVA tenderness, no Sampson in place Musculoskeletal: Moving all extremities, no edema Skin: Warm, dry Neurologic: AAOx3, no new focal deficit Assessment /Plan Assessment #CVA -Acute lacunar infarct appreciated on MRI and acute left pontine infarct. There is a small focal of increased signal in the bilateral basal ganglia, bilateral frontal and parietal subcortical and deep white matter which is likely related to his uncontrolled blood pressure. -MRA did not show any stenosis or occlusion. Ultrasound of carotid arteries showed no stenosis -Echocardiogram done with no PFO mentioned. -PT/OT cleared patient -Aspirin, statin -Neurology following and appreciate input. #Hypertensive emergency -Patient has very resistant hypertension. He was initially on nicardipine drip transitioned off satisfactorily to a p.o. regimen. However his blood pressure continues to raise despite being on amlodipine 10 mg, minoxidil 5 mg twice daily, chlorthalidone 25 mg daily, spironolactone 12.5 mg daily, valsartan 320 mg daily. -Spoke to cardiology, Dr. Najera regarding who recommended dose of chlorthalidone be changed to 50 mg, spironolactone be changed to 25 mg daily, valsartan to 160 mg twice daily, and to start carvedilol 25 mg every 6. He recommended hydralazine to be discontinued due to its side effect profile. This new regimen will be initiated and we will continue to monitor patient's blood pressure. #Chronic kidney disease -Baseline creatinine is around 1.5-1.9. Today, creatinine is 1.76. When nephrotoxic medications. Renal ultrasound noted no stenosis #Hyperlipidemia -Continue statin therapy. #Right eye blindness -He has had this for approximately a year it started off his progressive but he did not seek any medical attention. Encouraged to follow-up with heel seater as an outpatient. #DVT prophylaxis -Heparin subcu Plan/VTE VTE Prophylaxis Ordered?: Yes VS, I&O, 24H, Fishbone Vital Signs/I&O Vital Signs Date Time Temp Pulse Resp B/P (MAP) Pulse Ox O2 Delivery O2 Flow Rate FiO2 09/01/21 12:19 201/142 09/01/21 11:00 74 93 Room Air 09/01/21 08:00 97.9 18 I&O- Last 24 Hours up to 6 AM 09/01/21 06:00 Intake Total 1625 ml Output Total 2350 ml Balance -725 ml Laboratory Data 24H LABS Laboratory Tests 2 09/01/21 05:19: Nucleated Red Blood Cells % (auto) 0.0, Anion Gap 5L, Glomerular Filtration Rate 48.6L, Calcium Level 9.0, Phosphorus Level 3.3, Magnesium Level 2.2 CBC/BMP Laboratory Tests 09/01/21 05:19 AI GUTIERREZ M.D. Sep 01, 2021 13:54
[2021-09-01] MEDS ORDERED: FUROSEMIDE 40MG/4ML VIAL (J1940) IV ONE (14:40)
[2021-09-01] MEDS ORDERED: CARVedilol 12.5 MG TAB PO ONE (14:45)
[2021-09-01] MEDS: SPIRONOLACTONE 25 MG TAB PO SCH (17:34)
[2021-09-01] MEDS ORDERED: CARVedilol 12.5 MG TAB PO SCH (18:00)
[2021-09-02] VITALS: BP 140/86
[2021-09-02] MEDS: CARVedilol 12.5 MG TAB PO SCH ×2 (00:11→06:03)
[2021-09-02 04:30] VITALS: BP 148/93
[2021-09-02 05:18] LABS: HEMATOCRIT 52.8 % (42.0-52.0); HEMOGLOBIN 18.1 g/dl (13.5-17.5); MEAN CORPUSCULAR HEMOGLOBIN 29.5 pg (27.0-33.0); MEAN CORPUSCULAR HGB CONC 34.3 g/dl (32.0-36.5); MEAN CORPUSCULAR VOLUME 86.1 fl (80.0-96.0); PLATELET COUNT, AUTOMATED 268 10^3/uL (150-450); RED BLOOD COUNT 6.13 10^6/uL (4.30-6.10); WHITE BLOOD COUNT 10.7 10^3/uL (4.0-10.0)
[2021-09-02 05:50] LABS: CALCIUM LEVEL 8.8 MG/DL (8.5-10.1); CREATININE FOR GFR 2.62 MG/DL (0.70-1.30); GLOMERULAR FILTRATION RATE 29.3 (>60); MAGNESIUM LEVEL 2.2 MG/DL (1.8-2.4); PHOSPHORUS LEVEL 4.4 MG/DL (2.5-4.9); POTASSIUM SERUM 4.1 MEQ/L (3.5-5.1)
[2021-09-02] MEDS: HEPARIN SOD (PORCINE) 5000UNITS/ML 1ML VIAL/SYRINGE SC SCH (06:04)
[2021-09-02 08:00] VITALS: BP 128/76
[2021-09-02] MEDS: VALSARTAN 80 MG TAB (DIOVAN) PO SCH (08:08)
[2021-09-02 09:00] VITALS: BP 118/73
[2021-09-02] MEDS ORDERED: VALSARTAN 80 MG TAB (DIOVAN) PO SCH ×2 (09:00)
[2021-09-02] MEDS ORDERED: CHLORTHALIDONE 25 MG TAB PO SCH (09:00)
[2021-09-02] MEDS: minoxidiL 2.5 MG TAB PO SCH (09:00)
[2021-09-02] MEDS ORDERED: FUROSEMIDE 40 MG TAB PO SCH (09:00)
[2021-09-02] MEDS: ASPIRIN 81MG ENTERIC TABLET PO SCH (09:43)
[2021-09-02] MEDS: ATORVASTATIN 20 MG TAB PO SCH (09:43)
[2021-09-02] MEDS: SPIRONOLACTONE 25 MG TAB PO SCH (09:43)
[2021-09-02] MEDS ORDERED: ATOR1TAB21 PO (11:42)
[2021-09-02] MEDS ORDERED: CARV12.5 PO (11:42)
[2021-09-02] MEDS ORDERED: ASPI-551 PO (11:42)
[2021-09-02] MEDS ORDERED: AMLO1TAB25 PO (11:42)
[2021-09-02] MEDS ORDERED: HYDR-3911 PO (11:43)
--- NOTE | 2021-09-02 19:35 | CR ---
CONSULTATION DATE: 09/02/2021 REQUESTING PHYSICIAN: Dr. Tere Frias REASON FOR CONSULTATION: Hypertensive emergency and acute kidney injury. HISTORY OF PRESENT ILLNESS: Jose Schilling is a 36-year-old male with a past medical history of early onset severe hypertension in his 20s and patient is noncompliant with medical care. Does not followup with any primary care physician. Does not see any specialist. Does not take any prescription medications and has sequelae of chronic lung-term untreated blood pressure, including multiple strokes, small-vessel ischemic disease of the brain, chronic kidney disease along with grade 1 diastolic dysfunction. Patient is also blind in his right eye but has not had that worked up. He presented to the emergency room on August 30 with complaint of numbness and weakness on his right side and was found to have an acute lacunar infarct. Patient was severely hypertensive on admission with blood pressure recorded 251/163. His admission creatinine was 1.8. I reviewed his prior labs in the [facility] system going back to 2010, and his creatinine on this admission was lower than what was seen on his prior labs. He had a renal artery Doppler which was negative for stenosis. The patient was evaluated by neurology. He had an echocardiogram done. He had workup of his carotids and cerebral arteries with no aneurysms identified. His blood pressure was controlled with nicardipine drip initially and then transitioned over to oral regimen, including use of diuretics and angiotensin receptor nova. Patient's creatinine increased from 1.6 yesterday to 2.6 today, and nephrology evaluation was subsequently requested. I saw and examined the patient this morning at the bedside. Patient is not interested in discussing his medical issues at length and tells me repeatedly that he plans to sign himself out of the hospital today against medical advice. He admits to not having seen a physician the past couple of years and understands that he has multiple sequelae of untreated hypertension and tells me that he has not regularly taken any prescription medications in the past but that he will consider taking oral antihypertensives at this time and will try and set up a primary care physician but is not interested in staying any longer at the hospital and understands that he has worsening renal function. MEDICAL HISTORY: 1. Early onset hypertension in his 20s. 2. Chronic kidney disease. 3. Right eye blindness. 4. Grade 1 diastolic dysfunction. 5. Dyslipidemia. 6. Recently diagnosed ischemic stroke. SURGICAL HISTORY: Right ankle fracture in 2000. SOCIAL HISTORY: Smokes two cigars a day. Denies any drinking or drug use. FAMILY HISTORY: Denies a family history of renal failure. ALLERGIES: No known drug allergies. HOME MEDICATIONS: States he does not take any [id number] nor prescription medications. REVIEW OF SYSTEMS: CONSTITUTIONAL: Denies fevers or chills. EYES: Reports right eye blindness but no trouble with left eye vision. ENT: Denies odynophagia, rhinorrhea, epistaxis. CARDIAC: Has grade 1 diastolic dysfunction. Denies chest pain, palpitations, or leg swelling. RESPIRATORY: Denies shortness of breath or cough. GASTROINTESTINAL: Denies nausea, vomiting, diarrhea. GENITOURINARY: Denies dysuria, hematuria. ENDOCRINE: Denies diabetes or thyroid issues. MUSCULOSKELETAL: Reports a history of gout. Denies any acute myalgias or arthralgias. NEUROLOGIC: Reports recent stroke and recent numbness in his right arm and right leg. SKIN: Denies any new rashes or ulcers. Remainder of review of systems is negative or as per history of present illness (HPI). VITAL SIGNS: Temperature 96.8, pulse 66, respiratory rate 18, blood pressure 128/76, saturating 98% on room air. Intake yesterday was 2.2 liters. Urine output was 3.4 liters. Weight in the bed scale today is not recorded. GENERAL: Patient is seen walking around the room, awake, alert, oriented, on the phone in no distress. Young man, well built. He is blind in his right eyes. Tongue is moist. Neck is supple. Jugular veins were not elevated. HEART: Sounds were regular, S1, S2. No murmur appreciated. No leg edema. Peripheral pulses are palpable. LUNGS: Clear to auscultation. No crackle or rales. ABDOMEN: Soft and nontender. EXTREMITIES: No edema. No clubbing or cyanosis. NEUROLOGIC: He is oriented times three, interactive and conversational. LABORATORY DATA: Sodium 139, potassium 4.1, bicarbonate 27, BUN 43, creatinine 2.6, up from 1.8 on admission and 1.6 yesterday. Glucose 93, phosphorus 4.4, magnesium 2.2. No urinalysis was done on this admission. Renal ultrasound shows normal-size kidneys bilaterally. No hydronephrosis. No nephrolithiasis. No cysts. No renal artery stenosis. INPATIENT MEDICATIONS: - Patient is on amlodipine 10 mg by mouth daily - aspirin 81 mg by mouth daily - atorvastatin 40 mg by mouth daily - carvedilol 25 mg by mouth every 6 hours - chlorthalidone 25 mg by mouth daily - Lasix 40 mg by mouth daily - heparin 5000 units subcutaneous every 8 hours - minoxidil 5 mg by mouth twice a day - spironolactone 25 mg by mouth twice a day - valsartan 160 mg by mouth twice a day PROBLEMS: 1. Acute kidney injury, likely superimposed on chronic kidney disease (CKD), stage III. Patient likely has a baseline creatinine of around 1.6-1.8. He has had early onset hypertension since his 20s and does not take any medication, and blood pressure has likely been chronically uncontrolled, and I suspect he has underlying hypertensive nephrosclerosis. His blood pressure was controlled on this admission with multiple agents, including use of diuretics and angiotensin-receptor nova. He had an acute kidney injury. Creatinine is up to 2.6 today. He refuses any further length of stay to his hospitalization. He insists he will be leaving the hospital today. I advised that when prescriptions are given for patient's outpatient blood pressure control (as he will be leaving against medical advice), he should not be given any diuretic nor angiotensin-converting enzyme (CHRIST) nor angiotensin-receptor nova (ARB). He can be discharged on calcium channel nova, beta nova, and vasodilator agent, and I have advised him that he should followup in the office, but I feel he is unlikely to do so. 2. Uncontrolled hypertension. I note patient did have secondary hypertension workup back in 2010 when he was admitted with malignant hypertension. On this admission he also had a renal artery Doppler done that was negative. He reports resistant hypertension since he was in his 20s, but he denies a family history of early onset hypertension. Unfortunately, he has a poor prognosis given that he is not compliant with prescription medications nor with outpatient physician followup. 3. Right eye blindness. He reports this has been ongoing for approximately a year, but he has not seen any provider outpatient. I have advised him to see an call out operator and not his road consultant, as was his previous intention. Thank you for allowing me to participate in the care of Mr. Schilling. I did review the outpatient bunk house worker chart. Patient has not been to the nephrology office since 2018, and I did encourage him to followup with us.
[2021-09-02] MEDS ORDERED: CARVedilol 12.5 MG TAB PO SCH (21:00)
--- NOTE | 2021-09-04 15:49 | DS.PDOC ---
Discharge Summary General Date of Admission Aug 30, 2021 at 10:17 Date of Discharge 09/02/21 Discharge Summary PROCEDURES PERFORMED DURING STAY: [None]. DISCHARGE DIAGNOSES: Acute left pontine paramedian/posterolateral acute ischemic stroke. 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 Right Eye blindness COMPLICATIONS/CHIEF COMPLAINT: Hypertensive Emergency. HOSPITAL COURSE: 36-year-old male with a past medical history of hypertension, hyperlipidemia, right eye blindness (has not seek medical attention for this), and chronic kidney disease has not been following with any physician for at leat 2 years and has not been taking any medications for more than a year presented to emergency room department with complaints of right-sided weakness, [id number], and unsteady gait. On 08/29 around noon patient was sitting on his sofa and began to feel numb in his entire right arm as well as right leg and when he tried to stand he felt unsteady. He thought the symptoms would resolve therefore did not seek medical attention. However, on the morning of 08/30 morning he was experiencing same symptoms therefore came to the emergency room department for further evaluation. He was found to have hypertensive emergency and MRI showed Acute left pontine paramedian/posterolateral acute ischemic stroke. This is the cause of his right sided symptoms along with gait and speech difficulty. And tiny right fontal ischemic acute stroke which is likely asymptomatic. Acute infarct in the left manny ( as per Neurology not mentioned in the MRI reading of the radiologist). Acute CVA Acute lacunar infarct in the right frontal lobe and acute left pontine infarct seen in the MRI. There is a small focal of increased signal in the bilateral basal ganglia, bilateral frontal and parietal subcortical and deep white matter which is likely related to his uncontrolled blood pressure. MRA did not show any stenosis or occlusion. Ultrasound of carotid arteries showed no stenosis Echocardiogram done with no PFO mentioned. Continue Aspirin, statin Hypertensive emergency Patient has very resistant hypertension. He was initially on nicardipine drip transitioned off satisfactorily to a p.o. regimen. discharged with amlodipine 10, hydralazine 50 bid and betablocker SAVANNA on Chronic kidney disease Baseline creatinine is around 1.5-1.9. Renal ultrasound noted no stenosis Creatinine on 09/02 was up to 2.6 Nephrology was consulted but patient did not want to stay any longer and requested to leave AMA Hyperlipidemia Continue statin therapy. Right eye blindness He has had this for approximately a year it started off his progressive but he did not seek any medical attention. Encouraged to follow-up with marine meteorologist as an outpatient. DISCHARGE MEDICATIONS: Please see below. ALLERGIES: Please see below. PHYSICAL EXAMINATION ON DISCHARGE: VITAL SIGNS: Please see below. General: Lying in bed, no acute distress Head/Neck/Throat: Trachea midline, mucous membranes moist Eyes: Sclera anicteric, PERRLA Thorax: Normal respiratory effort on room air, lungs clear to auscultation bilaterally, no wheezes/rales/rhonchi Cardiovascular: Normal rate, regular rhythm, normal S1, S2; no rubs/gallops/murmurs Abdomen: Bowel sounds present, soft/nontender/nondistended Genitourinary: No CVA tenderness, no Sampson in place Musculoskeletal: Moving all extremities, no edema Skin: Warm, dry Neurologic: AAOx3, no new focal deficit LABORATORY DATA: Please see below. IMAGING: MRI: FINDINGS: Brain: Examination reveals a tiny 4 mm rounded focus of restricted diffusion in the right high frontal parasagittal subcortical white matter series 404, image 26 consistent with tiny acute lacunar infarction. No other areas of restricted diffusion are seen. No acute hemorrhage, mass or midline shift is noted. Examination reveals several small focal areas of increased T2 signal in bilateral basal ganglia , bilateral frontal and parietal subcortical and deep white matter. These are nonspecific and could be secondary to chronic migraine headache, vasculitis, Lyme disease, demyelination and focal areas of chronic ischemia. On gradient echo imaging, no susceptibility changes are seen to represent parenchymal calcification or degraded blood products. The cortical salas / white matter interfaces are preserved throughout the brain.Intracranial flow voids are well maintained. Cerebral ventricles: The ventricular system is not dilated and is appropriate for the patient's age. Bones/joints: Unremarkable. Paranasal sinuses: Normal as visualized. No acute sinusitis. Mastoid air cells: Normal as visualized. No mastoid effusion. Orbital cavity: Unremarkable. Soft tissues: Unremarkable. IMPRESSION: 1. Examination reveals a tiny 4 mm rounded focus of restricted diffusion in the right high frontal parasagittal subcortical white matter series 404, image 26 consistent with tiny acute lacunar infarction. No other areas of restricted diffusion are seen. No acute hemorrhage, mass or midline shift is noted. 2. Examination reveals several small focal areas of increased T2 signal in bilateral basal ganglia , bilateral frontal and parietal subcortical and deep white matter. These are nonspecific and could be secondary to chronic migraine headache, vasculitis, Lyme disease, demyelination and focal areas of chronic ischemia. ECHO: MEASUREMENTS: 2D Measurements: RV - 4.2 cm LV - 5.4 cm Septum 1.5 cm Posterior wall 1.5 cm Aortic root 4.1 cm LA - 4.9 cm LVEF 75% Doppler Measurements: AV - 1.56 m/sec LVOT - 1.27 m/sec MV-E 64, A 95, EA ratio 0.7 Early mitral deceleration time 148 msec E prime medial 4.4 A prime medial 15 E prime lateral 4 Average E/E prime ratio 15.2/PCWP - 20.8 mmHg PV - 1.05 m/sec Pulmonary artery acceleration time 99 msec PASP 37 mmHg IVC - 1.6 cm COMMENTS: Normal sinus rhythm without intraventricular conduction disturbance. M-mode and 2-dimensional echocardiography was performed with pulse, continuous wave, color flow and tissue Doppler studies. Left ventricular cavity size upper limits of normal with moderate symmetrical left ventricular hypertrophy. Hyperkinetic left ventricular wall motion. Moderately dilated left atrium with grade 1 left ventricular (LV) diastolic dysfunction and elevated mean left atrial pressure. Right heart chamber sizes were upper limits of normal with hyperkinetic right ventricular free wall motion. Current estimated pulmonary arterial pressure was mildly increased. Normal inferior vena cava (IVC) size and collapse against an elevated central venous pressure. Mildly dilated aortic root, but normal ascending diameter. Normal appearing and functioning valvular structures. ACTIVITY: [As tolerated]. DISPOSITION: 07 Against Medical Advice. DISCHARGE INSTRUCTIONS: PMD in 1 week DISCHARGE CONDITION: [Stable]. TIME SPENT ON DISCHARGE: 35 minutes. Vital Signs/I&Os Vital Signs Date Time Temp Pulse Resp B/P (MAP) Pulse Ox O2 Delivery O2 Flow Rate FiO2 09/02/21 09:00 118/73 09/02/21 08:08 66 09/02/21 08:00 96.8 18 98 Room Air Discharge Medications Scheduled Amlodipine Besylate (Amlodipine Besylate) 10 Mg Tablet, 10 MG PO DAILY@0800 Aspirin (Aspirin EC) 81 Mg Tablet.dr, 81 MG PO DAILY Atorvastatin Calcium (Atorvastatin Calcium) 20 Mg Tablet, 40 MG PO QHS Carvedilol (Carvedilol) 12.5 Mg Tablet, 25 MG PO BID Hydralazine HCl (Hydralazine HCl) 50 Mg Tablet, 1 TAB PO BID Allergies Coded Allergies: No Known Allergies (Unverified , 08/30/21) Tere Frias MD Sep 04, 2021 15:49
[2021-09-05 13:07] LABS: ANA (HEP2) Positive (.); ANCA-ATYPICAL <1:20 titer (Neg:<1:20); ANTI DS-DNA AB Negative (Negative); ANTI THROMBIN 3 ANTIGEN IMMUNO 112 % (72-124); ANTI THROMBIN 3 FUNCT ACTIVITY 117 % (75-135); CARDIOLIPIN IGA ANTIBODY <9 APL U/mL (0-11); CARDIOLIPIN IGG ANTIBODY <9 GPL U/mL (0-14); CARDIOLIPIN IGM ANTIBODY <9 MPL U/mL (0-12); CYTOPLASMIC NEUTROP AB ANCA-C <1:20 titer (Neg:<1:20); FACTOR VIII ACTIVITY 127 % (56-140); PERINUCLEAR AB ANCA-P <1:20 titer (Neg:<1:20); PROTEIN C ANTIGEN 110 % (60-150); PROTEIN C FUNCTIONAL ACTIVITY 130 % (73-180); PROTEIN S ANTIGEN FREE 110 % (61-136); PROTEIN S ANTIGEN TOTAL 120 % (60-150); SSA SJOGRENS A <0.2 AI (0.0-0.9); SSB SJOGRENS B <0.2 AI (0.0-0.9)
== END 2021-09-02 12:25 | disposition left against medical advice (07) | DRG 45 ==
LOC: M ED 06:32 → M ED INP 10:17 → M PCU 21:02
PROVIDERS: ADMIT Internal Medicine; ATTEND Internal Medicine
DX: I63.9 Cerebral infarction, unspecified (principal); N17.9 Acute kidney failure, unspecified; N18.30 Chronic kidney disease, stage 3 unspecified; G81.93 Hemiplegia, unspecified affecting right nondominant side; I12.9 Hypertensive chronic kidney disease with stage 1 through stage 4 chronic kidney disease, or unspecified chronic kidney disease; E78.5 Hyperlipidemia, unspecified; H54.7 Unspecified visual loss; F17.290 Nicotine dependence, other tobacco product, uncomplicated; I16.1 Hypertensive emergency; Z20.822 Contact with and (suspected) exposure to COVID-19; R47.81 Slurred speech; R26.89 Other abnormalities of gait and mobility

== ENCOUNTER → 2021-11-19 | Outpatient (CLI) | payer OTHER ==
[~2021-11-19] MED LIST changes: +AMLO1TAB25 PO; +ASPI-551 PO; +ATOR1TAB21 PO; +CARV12.5 PO; +HYDR-3911 PO
[2021-11-19 10:23] LABS: BASO # 0.1 10^3/uL (0.0-0.2); BASO % 0.6 % (0.0-1.0); EOS # 0.3 10^3/uL (0.0-0.5); EOS % 2.3 % (0.0-3.0); HEMATOCRIT 49.4 % (42.0-52.0); LYMPH # 4.1 10^3/uL (1.5-5.0); LYMPH % 32.7 % (24.0-44.0); MEAN CORPUSCULAR HEMOGLOBIN 29.1 pg (27.0-33.0); MEAN CORPUSCULAR HGB CONC 34.4 g/dl (32.0-36.5); MEAN CORPUSCULAR VOLUME 84.6 fl (80.0-96.0); MONO # 0.9 10^3/uL (0.0-0.8); MONO % 6.9 % (2.0-8.0); NEUTROPHILS # 7.1 10^3/uL (1.5-8.5); PLATELET COUNT, AUTOMATED 289 10^3/uL (150-450); RED BLOOD COUNT 5.84 10^6/uL (4.30-6.10); WHITE BLOOD COUNT 12.4 10^3/uL (4.0-10.0)
[2021-11-19 10:56] LABS: HEMOGLOBIN A1c 4.9 %
[2021-11-19 11:05] LABS: ALBUMIN 3.9 GM/DL (3.2-5.2); BILIRUBIN,TOTAL 0.2 MG/DL (0.2-1.0); CALCIUM LEVEL 9.5 MG/DL (8.5-10.1); CHOLESTEROL RISK RATIO 2.736 (<5); CREATININE FOR GFR 2.25 MG/DL (0.70-1.30); GLOMERULAR FILTRATION RATE 34.9 (>60); MAGNESIUM LEVEL 2.4 MG/DL (1.8-2.4); POTASSIUM SERUM 3.8 MEQ/L (3.5-5.1); THYROID STIMULATING HORMONE 0.302 uIU/ML (0.358-3.740); TOTAL 25(OH) VITAMIN D 24.9 NG/ML (30.0-100.0)
== END ==
LOC: M PLALAB 08:36
PROVIDERS: ATTEND Nurse Practitioner Family
DX: I12.9 Hypertensive chronic kidney disease with stage 1 through stage 4 chronic kidney disease, or unspecified chronic kidney disease (principal); N18.30 Chronic kidney disease, stage 3 unspecified; E78.5 Hyperlipidemia, unspecified; E55.9 Vitamin D deficiency, unspecified; F32.9 Major depressive disorder, single episode, unspecified

== ENCOUNTER 2022-06-23 08:50 | Emergency (ER) | payer OTHER ==
[~2022-06-23] VITALS: Ht 175.3 cm; Wt 104.5 kg
[2022-06-23] MEDS ORDERED: ACETAMINOPHEN 500 MG TAB PO ONE (09:15)
[2022-06-23 09:42] VITALS: BP 180/99
[2022-06-23] MEDS ORDERED: IBUPROFEN 800 MG TAB PO ONE (10:40)
== END 2022-06-23 10:49 | disposition home or self-care (01) ==
LOC: M ED 08:50 → EDBD 08:50 → M ED 10:49
DX: S93.601A Unspecified sprain of right foot, initial encounter (principal); X50.1XXA Overexertion from prolonged static or awkward postures, initial encounter; I25.2 Old myocardial infarction; I10 Essential (primary) hypertension; N18.30 Chronic kidney disease, stage 3 unspecified; E78.5 Hyperlipidemia, unspecified; Z86.73 Personal history of transient ischemic attack (TIA), and cerebral infarction without residual deficits; Z79.82 Long term (current) use of aspirin; Z79.899 Other long term (current) drug therapy

== ENCOUNTER 2022-09-03 14:31 | Emergency (ER) | payer OTHER ==
[~2022-09-03] VITALS: Ht 175.3 cm; Wt 105.4 kg
[2022-09-03 16:30] LABS: BASO # 0.1 10^3/uL (0.0-0.2); BASO % 0.6 % (0.0-1.0); EOS # 0.1 10^3/uL (0.0-0.5); EOS % 0.7 % (0.0-3.0); HEMATOCRIT 47.8 % (42.0-52.0); HEMOGLOBIN 16.5 g/dl (13.5-17.5); LYMPH # 3.7 10^3/uL (1.5-5.0); LYMPH % 28.2 % (24.0-44.0); MEAN CORPUSCULAR HEMOGLOBIN 29.9 pg (27.0-33.0); MEAN CORPUSCULAR HGB CONC 34.5 g/dl (32.0-36.5); MEAN CORPUSCULAR VOLUME 86.6 fl (80.0-96.0); MONO % 7.8 % (2.0-8.0); NEUTROPHILS # 8.3 10^3/uL (1.5-8.5); NEUTROPHILS % 62.4 % (36.0-66.0); PLATELET COUNT, AUTOMATED 278 10^3/uL (150-450); RED BLOOD COUNT 5.52 10^6/uL (4.30-6.10); WHITE BLOOD COUNT 13.3 10^3/uL (4.0-10.0)
[2022-09-03 16:59] VITALS: BP 150/88
== END 2022-09-03 17:02 | disposition home or self-care (01) ==
LOC: M ED 14:31
DX: N18.9 Chronic kidney disease, unspecified (principal); L02.212 Cutaneous abscess of back [any part, except buttock and flank]; R53.83 Other fatigue; I10 Essential (primary) hypertension; Z86.73 Personal history of transient ischemic attack (TIA), and cerebral infarction without residual deficits; I25.10 Atherosclerotic heart disease of native coronary artery without angina pectoris; I25.2 Old myocardial infarction; Z79.82 Long term (current) use of aspirin; Z79.899 Other long term (current) drug therapy

== ENCOUNTER → 2022-10-13 | Outpatient (CLI) | payer OTHER ==
[2022-10-13 15:08] LABS: BASO # 0.1 10^3/uL (0.0-0.2); BASO % 0.9 % (0.0-1.0); EOS # 0.2 10^3/uL (0.0-0.5); EOS % 1.6 % (0.0-3.0); HEMATOCRIT 49.4 % (42.0-52.0); HEMOGLOBIN 16.4 g/dl (13.5-17.5); LYMPH # 3.6 10^3/uL (1.5-5.0); LYMPH % 37.1 % (24.0-44.0); MEAN CORPUSCULAR HEMOGLOBIN 29.7 pg (27.0-33.0); MEAN CORPUSCULAR HGB CONC 33.2 g/dl (32.0-36.5); MEAN CORPUSCULAR VOLUME 89.5 fl (80.0-96.0); MONO # 0.9 10^3/uL (0.0-0.8); MONO % 8.8 % (2.0-8.0); NEUTROPHILS % 51.3 % (36.0-66.0); PLATELET COUNT, AUTOMATED 250 10^3/uL (150-450); RED BLOOD COUNT 5.52 10^6/uL (4.30-6.10); WHITE BLOOD COUNT 9.7 10^3/uL (4.0-10.0)
[2022-10-13 15:24] LABS: POTASSIUM SERUM 4.5 MMOL/L (3.5-5.1)
[2022-10-13 15:25] LABS: ALBUMIN 4.4 G/DL (3.2-5.2)
[2022-10-13 15:27] LABS: THYROID STIMULATING HORMONE 0.868 uIU/ML (0.55-4.78)
[2022-10-13 15:28] LABS: FREE T4 1.25 NG/DL (0.89-1.76)
[2022-10-13 15:29] LABS: BILIRUBIN,TOTAL 0.4 MG/DL (0.3-1.2); TOTAL 25(OH) VITAMIN D 37.5 NG/ML (20.0-100.0); TOTAL PROTEIN 7.2 G/DL (5.7-8.2)
[2022-10-13 15:30] LABS: CALCIUM LEVEL 9.7 MG/DL (8.5-10.1)
[2022-10-13 15:33] LABS: CHOLESTEROL RISK RATIO 2.31 (<5); CREATININE FOR GFR 1.79 MG/DL (0.70-1.30); GLOMERULAR FILTRATION RATE 45.2 (>60); HDL CHOLESTEROL 50.1 MG/DL (>40); LDL CHOLESTEROL 56.5 MG/DL (<100)
[2022-10-13 17:30] LABS: HEMOGLOBIN A1c 4.9 % (4.0-6.0)
== END ==
LOC: M PLALAB 10:49
PROVIDERS: ATTEND Nurse Practitioner Family
DX: I10 Essential (primary) hypertension (principal); E78.5 Hyperlipidemia, unspecified; E55.9 Vitamin D deficiency, unspecified; R79.89 Other specified abnormal findings of blood chemistry

== ENCOUNTER 2023-01-22 11:05 | Inpatient (IN) | payer OTHER ==
[~2023-01-22] VITALS: Ht 175.3 cm; Wt 109.8 kg
[2023-01-22 12:06] LABS: BASO # 0.1 10^3/uL (0.0-0.2); BASO % 0.6 % (0.0-1.0); EOS # 0.1 10^3/uL (0.0-0.5); EOS % 1.2 % (0.0-3.0); HEMATOCRIT 52.1 % (42.0-52.0); LYMPH # 2.9 10^3/uL (1.5-5.0); LYMPH % 25.6 % (24.0-44.0); MEAN CORPUSCULAR HEMOGLOBIN 29.7 pg (27.0-33.0); MEAN CORPUSCULAR HGB CONC 34.5 g/dl (32.0-36.5); MEAN CORPUSCULAR VOLUME 85.8 fl (80.0-96.0); MONO # 0.7 10^3/uL (0.0-0.8); MONO % 6.2 % (2.0-8.0); NEUTROPHILS # 7.5 10^3/uL (1.5-8.5); PLATELET COUNT, AUTOMATED 230 10^3/uL (150-450); RED BLOOD COUNT 6.07 10^6/uL (4.30-6.10); WHITE BLOOD COUNT 11.3 10^3/uL (4.0-10.0)
[2023-01-22 12:35] LABS: ALBUMIN 4.3 G/DL (3.2-5.2); ALKALINE PHOSPHATASE 79 U/L (46-116); ALT/SGPT 26 U/L (7.0-40); AST/SGOT 23 U/L (<34); BILIRUBIN,DIRECT 0.2 MG/DL (<0.4); BILIRUBIN,TOTAL 0.7 MG/DL (0.3-1.2); CK-MB VALUE MASS < 1.0 NG/ML (<3.6); CPK CREATINE PHOSPHOKINASE 157 U/L (46-171); MB/CK RELATIVE INDEX 0.63 (< OR =4); TOTAL PROTEIN 7.5 G/DL (5.7-8.2)
[2023-01-22 14:25] LABS: RSV AMPLIFICATION NEGATIVE (NEGATIVE)
[2023-01-22] MEDS ORDERED: ACETAMINOPHEN TAB 650MG DOSE (2X325MG) PO PRN (15:35)
[2023-01-22 16:50] VITALS: BP 186/80
[2023-01-22] MEDS ORDERED: CARV25TA PO (17:03)
[2023-01-22] MEDS ORDERED: AMLO1TAB25 PO (17:03)
[2023-01-22] MEDS ORDERED: ASPI-161 PO (17:03)
[2023-01-22] MEDS ORDERED: ATOR40TA75 PO (17:03)
[2023-01-22] MEDS ORDERED: HYDR-3911 PO (17:03)
[2023-01-22] MEDS ORDERED: HOME MED LIST COMPLETE! XX SCH (17:05)
[2023-01-22 17:10] VITALS: BP 186/80
[2023-01-22 17:44] LABS: INR 0.91; PARTIAL THROMBOPLASTIN TIME 26.9 SECONDS (24.8-34.2); PROTHROMBIN TIME 12.5 SECONDS (12.5-14.5)
[2023-01-22 17:59] LABS: HDL CHOLESTEROL 50.9 MG/DL (>40); LDL CHOLESTEROL 82.3 MG/DL (<100); NON-HDL-C 102.1 MG/DL
[2023-01-22 20:00] VITALS: BP 176/110
[2023-01-22] MEDS: **hydrALAZINE** 50 MG TAB PO SCH (20:04)
[2023-01-22] MEDS: HEPARIN SOD (PORCINE) 5000UNITS/ML 1ML VIAL/SYRINGE SQ SCH (20:05)
[2023-01-22] MEDS: CARVedilol 12.5 MG TAB PO SCH (20:05)
[2023-01-22 21:00] VITALS: BP 160/100
[2023-01-23] VITALS (10 sets, daily range): BP systolic 138–189; BP diastolic 90–119
[2023-01-23 05:15] LABS: HEMATOCRIT 47.3 % (42.0-52.0); MEAN CORPUSCULAR HEMOGLOBIN 29.4 pg (27.0-33.0); MEAN CORPUSCULAR HGB CONC 33.6 g/dl (32.0-36.5); MEAN CORPUSCULAR VOLUME 87.4 fl (80.0-96.0); PLATELET COUNT, AUTOMATED 208 10^3/uL (150-450); RED BLOOD COUNT 5.41 10^6/uL (4.30-6.10); WHITE BLOOD COUNT 9.1 10^3/uL (4.0-10.0)
[2023-01-23 05:34] LABS: HEMOGLOBIN 15.9 g/dl (13.5-17.5)
[2023-01-23 05:36] LABS: ALBUMIN 3.6 G/DL (3.2-5.2); BILIRUBIN,TOTAL 0.4 MG/DL (0.3-1.2); CALCIUM LEVEL 8.7 MG/DL (8.5-10.1); CREATININE FOR GFR 1.74 MG/DL (0.70-1.30); GLOMERULAR FILTRATION RATE 46.7 (>60); POTASSIUM SERUM 3.9 MMOL/L (3.5-5.1); TOTAL PROTEIN 6.2 G/DL (5.7-8.2)
[2023-01-23] MEDS ORDERED: HYDR50TA PO (07:17)
[2023-01-23] MEDS: **hydrALAZINE** 50 MG TAB PO SCH ×4 (08:09→20:11)
[2023-01-23] MEDS: CARVedilol 12.5 MG TAB PO SCH ×2 (08:09→20:12)
[2023-01-23] MEDS: ASPIRIN 81MG ENTERIC TABLET PO SCH (08:09)
[2023-01-23] MEDS: ATORVASTATIN 20 MG TAB PO SCH (08:09)
[2023-01-23] MEDS: HEPARIN SOD (PORCINE) 5000UNITS/ML 1ML VIAL/SYRINGE SQ SCH ×3 (08:13→20:22)
[2023-01-23] MEDS ORDERED: CARVedilol 12.5 MG TAB PO ONE (08:35)
[2023-01-23] MEDS ORDERED: CARVedilol 12.5 MG TAB PO SCH (09:00)
[2023-01-23] MEDS ORDERED: hydrALAZINE 20MG/ML 1ML VIAL IV STA (11:05)
[2023-01-23] MEDS ORDERED: **hydrALAZINE** 50 MG TAB PO SCH (16:00)
[2023-01-24 03:31] VITALS: BP 136/96
[2023-01-24 05:31] LABS: HEMATOCRIT 48.3 % (42.0-52.0); HEMOGLOBIN 16.3 g/dl (13.5-17.5); MEAN CORPUSCULAR HEMOGLOBIN 29.5 pg (27.0-33.0); MEAN CORPUSCULAR HGB CONC 33.7 g/dl (32.0-36.5); MEAN CORPUSCULAR VOLUME 87.3 fl (80.0-96.0); PLATELET COUNT, AUTOMATED 209 10^3/uL (150-450); RED BLOOD COUNT 5.53 10^6/uL (4.30-6.10); WHITE BLOOD COUNT 9.6 10^3/uL (4.0-10.0)
[2023-01-24 05:55] LABS: ALBUMIN 3.7 G/DL (3.2-5.2); BILIRUBIN,TOTAL 0.5 MG/DL (0.3-1.2); CALCIUM LEVEL 9.1 MG/DL (8.5-10.1); CREATININE FOR GFR 1.55 MG/DL (0.70-1.30); GLOMERULAR FILTRATION RATE 53.4 (>60); POTASSIUM SERUM 4.1 MMOL/L (3.5-5.1); TOTAL PROTEIN 6.4 G/DL (5.7-8.2)
[2023-01-24] MEDS ORDERED: CARV25TA PO (07:33)
[2023-01-24 07:50] VITALS: BP 160/106
[2023-01-24] MEDS ORDERED: HYDR50TA PO (08:55)
[2023-01-24] MEDS: HEPARIN SOD (PORCINE) 5000UNITS/ML 1ML VIAL/SYRINGE SQ SCH (09:00)
[2023-01-24] MEDS: ATORVASTATIN 20 MG TAB PO SCH (09:39)
[2023-01-24] MEDS: **hydrALAZINE** 50 MG TAB PO SCH (09:39)
[2023-01-24] MEDS: ASPIRIN 81MG ENTERIC TABLET PO SCH (09:39)
[2023-01-24 09:40] VITALS: BP 160/106
[2023-01-24] MEDS: CARVedilol 12.5 MG TAB PO SCH (09:40)
== END 2023-01-24 11:26 | disposition home or self-care (01) | DRG 861 ==
LOC: M ED 11:05 → M ED INP 15:31 → ENRESERV 16:16 → M PCU 16:51
PROVIDERS: ADMIT Internal Medicine; ATTEND Internal Medicine
PROC: B246ZZZ Ultrasonography of Right and Left Heart (ICD-10-PCS; principal; 2023-01-23)
DX: R53.1 Weakness (principal); I12.9 Hypertensive chronic kidney disease with stage 1 through stage 4 chronic kidney disease, or unspecified chronic kidney disease; N18.30 Chronic kidney disease, stage 3 unspecified; E78.5 Hyperlipidemia, unspecified; H54.61 Unqualified visual loss, right eye, normal vision left eye; F17.290 Nicotine dependence, other tobacco product, uncomplicated; Z20.822 Contact with and (suspected) exposure to COVID-19; Z79.899 Other long term (current) drug therapy

== ENCOUNTER 2023-02-16 16:25 | Emergency (ER) | payer OTHER ==
[~2023-02-16] VITALS: Ht 175.3 cm; Wt 113.2 kg
[~2023-02-16 16:25] MED LIST changes: +ASPI-161 PO; +ATOR40TA75 PO; +CARV25TA PO; +HYDR50TA PO
[2023-02-16 16:26] VITALS: BP 140/89
[2023-02-16 17:56] LABS: BLOOD UREA NITROGEN 33 MG/DL (9-23); CALCIUM LEVEL 9.5 MG/DL (8.5-10.1); CARBON DIOXIDE LEVEL 30 MMOL/L (20-31); CHLORIDE LEVEL 104 MMOL/L (98-107); CK-MB VALUE MASS < 1.0 NG/ML (<3.6); CREATININE FOR GFR 2.19 MG/DL (0.70-1.30); GLOMERULAR FILTRATION RATE 35.7 (>60); GLUCOSE, FASTING 88 MG/DL (60-100); POTASSIUM SERUM 4.3 MMOL/L (3.5-5.1); SODIUM LEVEL 138 MMOL/L (136-145)
[2023-02-16 18:06] LABS: BASO # 0.1 10^3/uL (0.0-0.2); BASO % 0.8 % (0.0-1.0); EOS # 0.2 10^3/uL (0.0-0.5); EOS % 1.6 % (0.0-3.0); HEMATOCRIT 52.1 % (42.0-52.0); HEMOGLOBIN 17.3 g/dl (13.5-17.5); LYMPH # 3.2 10^3/uL (1.5-5.0); LYMPH % 29.6 % (24.0-44.0); MEAN CORPUSCULAR HGB CONC 33.2 g/dl (32.0-36.5); MEAN CORPUSCULAR VOLUME 87.4 fl (80.0-96.0); MONO # 0.8 10^3/uL (0.0-0.8); MONO % 7.2 % (2.0-8.0); NEUTROPHILS # 6.5 10^3/uL (1.5-8.5); NEUTROPHILS % 60.4 % (36.0-66.0); PLATELET COUNT, AUTOMATED 267 10^3/uL (150-450); RED BLOOD COUNT 5.96 10^6/uL (4.30-6.10); WHITE BLOOD COUNT 10.8 10^3/uL (4.0-10.0)
[2023-02-16 18:07] LABS: CPK CREATINE PHOSPHOKINASE 141 U/L (46-171)
== END 2023-02-16 20:15 | disposition left against medical advice (07) ==
LOC: M ED 16:25
DX: Z53.21 Procedure and treatment not carried out due to patient leaving prior to being seen by health care provider (principal)

== ENCOUNTER 2023-03-25 08:01 | Emergency (ER) | payer OTHER ==
[~2023-03-25] VITALS: Ht 175.3 cm; Wt 113.5 kg
[2023-03-25 08:57] LABS: BASO # 0.1 10^3/uL (0.0-0.2); BASO % 0.9 % (0.0-1.0); EOS # 0.1 10^3/uL (0.0-0.5); EOS % 1.3 % (0.0-3.0); HEMOGLOBIN 16.2 g/dl (13.5-17.5); LYMPH # 2.2 10^3/uL (1.5-5.0); LYMPH % 26.7 % (24.0-44.0); MEAN CORPUSCULAR HEMOGLOBIN 29.3 pg (27.0-33.0); MEAN CORPUSCULAR HGB CONC 33.8 g/dl (32.0-36.5); MEAN CORPUSCULAR VOLUME 86.8 fl (80.0-96.0); MONO # 0.8 10^3/uL (0.0-0.8); MONO % 9.9 % (2.0-8.0); NEUTROPHILS % 60.8 % (36.0-66.0); PLATELET COUNT, AUTOMATED 238 10^3/uL (150-450); RED BLOOD COUNT 5.53 10^6/uL (4.30-6.10); WHITE BLOOD COUNT 8.2 10^3/uL (4.0-10.0)
[2023-03-25 09:20] LABS: INR 0.86; PROTHROMBIN TIME 11.9 SECONDS (12.5-14.5)
[2023-03-25 09:21] LABS: LIPASE 49 U/L (12-53); PARTIAL THROMBOPLASTIN TIME 27.3 SECONDS (24.8-34.2)
[2023-03-25 09:23] LABS: CK-MB VALUE MASS < 1.0 NG/ML (<3.6)
[2023-03-25 09:24] LABS: ALKALINE PHOSPHATASE 73 U/L (46-116); ALT/SGPT 33 U/L (7.0-40); AST/SGOT 19 U/L (<34); BILIRUBIN,DIRECT 0.2 MG/DL (<0.4); BILIRUBIN,TOTAL 0.5 MG/DL (0.3-1.2); BLOOD UREA NITROGEN 24 MG/DL (9-23); CALCIUM LEVEL 9.4 MG/DL (8.5-10.1); CARBON DIOXIDE LEVEL 28 MMOL/L (20-31); CHLORIDE LEVEL 106 MMOL/L (98-107); CREATININE FOR GFR 1.84 MG/DL (0.70-1.30); GLOMERULAR FILTRATION RATE 43.6 (>60); GLUCOSE, FASTING 84 MG/DL (60-100); POTASSIUM SERUM 4.4 MMOL/L (3.5-5.1); SODIUM LEVEL 142 MMOL/L (136-145); TOTAL PROTEIN 6.9 G/DL (5.7-8.2)
[2023-03-25 09:28] LABS: FREE T4 1.22 NG/DL (0.89-1.76)
[2023-03-25 09:29] LABS: CPK CREATINE PHOSPHOKINASE 147 U/L (46-171); MB/CK RELATIVE INDEX 0.68 (< OR =4)
[2023-03-25 09:34] LABS: RSV AMPLIFICATION NEGATIVE (NEGATIVE)
[2023-03-25 11:15] VITALS: BP 162/100
== END 2023-03-25 11:26 | disposition home or self-care (01) ==
LOC: M ED 08:01
DX: S46.812A Strain of other muscles, fascia and tendons at shoulder and upper arm level, left arm, initial encounter (principal); R07.89 Other chest pain; N18.30 Chronic kidney disease, stage 3 unspecified; I10 Essential (primary) hypertension; I25.2 Old myocardial infarction; Z86.73 Personal history of transient ischemic attack (TIA), and cerebral infarction without residual deficits; M54.9 Dorsalgia, unspecified; G43.909 Migraine, unspecified, not intractable, without status migrainosus; Z79.82 Long term (current) use of aspirin; Z79.899 Other long term (current) drug therapy

== ENCOUNTER → 2023-04-14 | Outpatient (CLI) | payer OTHER ==
[2023-04-14 15:59] LABS: BASO # 0.1 10^3/uL (0.0-0.2); EOS # 0.2 10^3/uL (0.0-0.5); EOS % 2.3 % (0.0-3.0); HEMATOCRIT 49.5 % (42.0-52.0); HEMOGLOBIN 16.4 g/dl (13.5-17.5); LYMPH # 3.1 10^3/uL (1.5-5.0); LYMPH % 37.3 % (24.0-44.0); MEAN CORPUSCULAR HEMOGLOBIN 29.1 pg (27.0-33.0); MEAN CORPUSCULAR HGB CONC 33.1 g/dl (32.0-36.5); MEAN CORPUSCULAR VOLUME 87.9 fl (80.0-96.0); MONO # 0.7 10^3/uL (0.0-0.8); MONO % 8.4 % (2.0-8.0); NEUTROPHILS # 4.2 10^3/uL (1.5-8.5); NEUTROPHILS % 50.6 % (36.0-66.0); PLATELET COUNT, AUTOMATED 248 10^3/uL (150-450); RED BLOOD COUNT 5.63 10^6/uL (4.30-6.10); WHITE BLOOD COUNT 8.2 10^3/uL (4.0-10.0)
[2023-04-14 16:11] LABS: THYROID STIMULATING HORMONE 0.795 uIU/ML (0.55-4.78); TOTAL 25(OH) VITAMIN D 33.3 NG/ML (20.0-100.0)
[2023-04-14 16:12] LABS: FREE T4 1.07 NG/DL (0.89-1.76)
[2023-04-14 16:17] LABS: ALBUMIN 4.3 G/DL (3.2-5.2); BILIRUBIN,TOTAL 0.6 MG/DL (0.3-1.2); CALCIUM LEVEL 8.7 MG/DL (8.5-10.1); CHOLESTEROL RISK RATIO 3.08 (<5); CREATININE FOR GFR 2.21 MG/DL (0.70-1.30); GLOMERULAR FILTRATION RATE 35.3 (>60); HDL CHOLESTEROL 44.1 MG/DL (>40); LDL CHOLESTEROL 68.5 MG/DL (<100); NON-HDL-C 91.9 MG/DL; TOTAL PROTEIN 7.1 G/DL (5.7-8.2)
== END ==
LOC: M PLALAB 10:49
PROVIDERS: ATTEND Nurse Practitioner Family
DX: I10 Essential (primary) hypertension (principal); E78.5 Hyperlipidemia, unspecified; E55.9 Vitamin D deficiency, unspecified; R79.89 Other specified abnormal findings of blood chemistry

== ENCOUNTER → 2023-10-11 | Outpatient (CLI) | payer OTHER ==
[2023-10-11 13:03] LABS: HEMOGLOBIN A1c 4.6 % (4.0-6.0)
[2023-10-11 13:09] LABS: ALBUMIN 4.4 G/DL (3.2-5.2); BILIRUBIN,TOTAL 0.6 MG/DL (0.3-1.2); CALCIUM LEVEL 9.7 MG/DL (8.5-10.1); CHOLESTEROL RISK RATIO 4.22 (<5); CREATININE FOR GFR 2.08 MG/DL (0.70-1.30); FREE T4 1.18 NG/DL (0.89-1.76); GLOMERULAR FILTRATION RATE 37.8 (>60); HDL CHOLESTEROL 39.3 MG/DL (>40); LDL CHOLESTEROL 90.1 MG/DL (<100); NON-HDL-C 126.7 MG/DL; POTASSIUM SERUM 3.6 MMOL/L (3.5-5.1); THYROID STIMULATING HORMONE 0.874 uIU/ML (0.55-4.78); TOTAL PROTEIN 7.4 G/DL (5.7-8.2)
== END ==
LOC: M PLALAB 10:25
PROVIDERS: ATTEND Nurse Practitioner Family
DX: I10 Essential (primary) hypertension (principal); E78.5 Hyperlipidemia, unspecified; R79.89 Other specified abnormal findings of blood chemistry; Z13.1 Encounter for screening for diabetes mellitus

== ENCOUNTER 2024-06-07 07:42 | Emergency (ER) | payer OTHER ==
[~2024-06-07] VITALS: Ht 175.3 cm; Wt 93.6 kg
[~2024-06-07 07:42] MED LIST changes: -ASPI-161 PO; +ASPI-615 PO; -HYDR-3911 PO; -HYDR50TA PO; +HYDR50TA46 PO; +HYDR50TA47 PO
[2024-06-07] MEDS ORDERED: IBUP-1114 PO (07:50)
[2024-06-07] MEDS ORDERED: CEPH500C PO (10:30)
[2024-06-07 10:58] VITALS: BP 128/74; TEMP 98.9; O2SAT 98
== END 2024-06-07 10:59 | disposition home or self-care (01) ==
LOC: M ED 07:42
DX: L03.115 Cellulitis of right lower limb (principal); I25.10 Atherosclerotic heart disease of native coronary artery without angina pectoris; I10 Essential (primary) hypertension; Z86.73 Personal history of transient ischemic attack (TIA), and cerebral infarction without residual deficits; Z87.39 Personal history of other diseases of the musculoskeletal system and connective tissue; Z79.82 Long term (current) use of aspirin; Z79.899 Other long term (current) drug therapy

== ENCOUNTER 2024-06-20 05:02 | Emergency (ER) | payer OTHER ==
[~2024-06-20] VITALS: Ht 175.3 cm; Wt 93.6 kg
[2024-06-20 05:02] VITALS: BP 127/57; TEMP 97.8; O2SAT 99
[~2024-06-20 05:02] MED LIST changes: +CEPH500C PO; +IBUP-1114 PO
== END 2024-06-20 12:11 | disposition left against medical advice (07) ==
LOC: M ED 05:02
DX: Z53.21 Procedure and treatment not carried out due to patient leaving prior to being seen by health care provider (principal)

== ENCOUNTER 2024-06-28 03:28 | Emergency (ER) | payer OTHER ==
[~2024-06-28] VITALS: Ht 182.9 cm; Wt 93.6 kg
[2024-06-28] MEDS: NAPROXEN 250 MG TAB PO ONE (07:26)
[2024-06-28 07:38] LABS: BASO # 0.1 10^3/uL (0.0-0.2); BASO % 0.6 % (0.0-1.0); EOS # 0.2 10^3/uL (0.0-0.5); EOS % 1.2 % (0.0-3.0); HEMATOCRIT 50.9 % (42.0-52.0); HEMOGLOBIN 17.3 g/dl (13.5-17.5); LYMPH # 3.7 10^3/uL (1.5-5.0); LYMPH % 28.6 % (24.0-44.0); MEAN CORPUSCULAR HEMOGLOBIN 29.2 pg (27.0-33.0); MEAN CORPUSCULAR VOLUME 85.8 fl (80.0-96.0); MONO # 1.3 10^3/uL (0.0-0.8); MONO % 9.9 % (2.0-8.0); NEUTROPHILS # 7.6 10^3/uL (1.5-8.5); NEUTROPHILS % 59.2 % (36.0-66.0); PLATELET COUNT, AUTOMATED 290 10^3/uL (150-450); RED BLOOD COUNT 5.93 10^6/uL (4.30-6.10); WHITE BLOOD COUNT 12.9 10^3/uL (4.0-10.0)
[2024-06-28 07:54] LABS: ERYTHROCYTE SEDIMENTATION RATE 46 mm/hr (0-15)
[2024-06-28 08:00] LABS: C REACTIVE PROTEIN QUANTITATIV 5.1 MG/DL (<1.0)
[2024-06-28 08:04] LABS: URIC ACID 9.6 MG/DL (3.7-9.2)
[2024-06-28 08:20] LABS: CALCIUM LEVEL 9.5 MG/DL (8.5-10.1); CREATININE FOR GFR 1.79 MG/DL (0.70-1.30); GLOMERULAR FILTRATION RATE 44.8 (>60); POTASSIUM SERUM 3.5 MMOL/L (3.5-5.1)
[2024-06-28] MEDS ORDERED: CEPH500C PO (08:35)
[2024-06-28 09:02] VITALS: BP 130/81; TEMP 96.7; O2SAT 98
[2024-06-28] MEDS: COLCHICINE 0.6 MG TABLET PO ONE (09:05)
[2024-06-28] MEDS: CEPHALEXIN 500 MG CAP PO ONE (09:06)
== END 2024-06-28 09:15 | disposition home or self-care (01) ==
LOC: M ED 03:28
DX: S90.32XA Contusion of left foot, initial encounter (principal); Y92.019 Unspecified place in single-family (private) house as the place of occurrence of the external cause; Y93.9 Activity, unspecified; Y99.9 Unspecified external cause status; K21.9 Gastro-esophageal reflux disease without esophagitis; F32.A Depression, unspecified; Z79.1 Long term (current) use of non-steroidal anti-inflammatories (NSAID); Z79.2 Long term (current) use of antibiotics; Z79.899 Other long term (current) drug therapy

== ENCOUNTER → 2024-09-28 | Outpatient (CLI) | payer OTHER ==
[2024-09-28 10:30] LABS: BASO # 0.1 10^3/uL (0.0-0.2); BASO % 0.9 % (0.0-1.0); EOS # 0.1 10^3/uL (0.0-0.5); EOS % 1.7 % (0.0-3.0); HEMATOCRIT 51.1 % (42.0-52.0); HEMOGLOBIN 17.7 g/dl (13.5-17.5); LYMPH # 3.4 10^3/uL (1.5-5.0); LYMPH % 41.4 % (24.0-44.0); MEAN CORPUSCULAR HEMOGLOBIN 29.6 pg (27.0-33.0); MEAN CORPUSCULAR HGB CONC 34.6 g/dl (32.0-36.5); MEAN CORPUSCULAR VOLUME 85.6 fl (80.0-96.0); MONO # 0.8 10^3/uL (0.0-0.8); MONO % 9.6 % (2.0-8.0); NEUTROPHILS # 3.7 10^3/uL (1.5-8.5); NEUTROPHILS % 46.2 % (36.0-66.0); PLATELET COUNT, AUTOMATED 261 10^3/uL (150-450); RED BLOOD COUNT 5.97 10^6/uL (4.30-6.10); WHITE BLOOD COUNT 8.1 10^3/uL (4.0-10.0)
[2024-09-28 10:38] LABS: ALBUMIN 4.2 G/DL (3.2-5.2); BILIRUBIN,TOTAL 0.6 MG/DL (0.3-1.2); CALCIUM LEVEL 10.2 MG/DL (8.5-10.1); CHOLESTEROL RISK RATIO 3.5 (<5); CREATININE FOR GFR 1.66 MG/DL (0.70-1.30); GLOMERULAR FILTRATION RATE 48.8 (>60); HDL CHOLESTEROL 47.1 MG/DL (>40); LDL CHOLESTEROL 88.1 MG/DL (<100); NON-HDL-C 117.9 MG/DL; POTASSIUM SERUM 4.2 MMOL/L (3.5-5.1); TOTAL PROTEIN 7.6 G/DL (5.7-8.2)
[2024-09-28 10:39] LABS: THYROID STIMULATING HORMONE 0.816 uIU/ML (0.55-4.78)
== END ==
LOC: M PLALAB 08:10
PROVIDERS: ATTEND Nurse Practitioner Family
DX: R79.89 Other specified abnormal findings of blood chemistry (principal); E55.9 Vitamin D deficiency, unspecified; I10 Essential (primary) hypertension; E78.5 Hyperlipidemia, unspecified

== ENCOUNTER → 2025-09-06 | Outpatient (CLI) | payer OTHER ==
[2025-09-06 11:39] LABS: BASO # 0.1 10^3/uL (0.0-0.2); BASO % 1.0 % (0.0-1.0); EOS # 0.2 10^3/uL (0.0-0.5); EOS % 1.8 % (0.0-3.0); LYMPH # 3.2 10^3/uL (1.5-5.0); LYMPH % 36.8 % (24.0-44.0); MONO # 0.8 10^3/uL (0.0-0.8); MONO % 9.6 % (2.0-8.0); NEUTROPHILS # 4.4 10^3/uL (1.5-8.5); NEUTROPHILS % 50.5 % (36.0-66.0); PLATELET COUNT, AUTOMATED 286 10^3/uL (150-450)
[2025-09-06 11:48] LABS: FREE T4 1.26 NG/DL (0.89-1.76)
[2025-09-06 11:49] LABS: ALT/SGPT 28.0 U/L (7.0-40); AST/SGOT 24.0 U/L (<34); CALCIUM LEVEL 10.1 MG/DL (8.5-10.1); CARBON DIOXIDE LEVEL 33.0 MMOL/L (20-31); CHLORIDE LEVEL 101.0 MMOL/L (98-107); CHOLESTEROL LEVEL 160.0 MG/DL (<200); CHOLESTEROL RISK RATIO 3.49 (<5); CREATININE FOR GFR 1.72 MG/DL (0.70-1.30); GLOMERULAR FILTRATION RATE 50.3 (>60); LDL CHOLESTEROL 78.6 MG/DL (<100); MAGNESIUM LEVEL 2.2 MG/DL (1.8-2.4); NON-HDL-C 114.2 MG/DL; POTASSIUM SERUM 4.0 MMOL/L (3.5-5.1); SODIUM LEVEL 143.0 MMOL/L (136-145); TOTAL 25(OH) VITAMIN D 43.8 NG/ML (20.0-100.0); TRIGLYCERIDES LEVEL 178.0 MG/DL (<150)
[2025-09-06 12:30] LABS: PTH INTACT 141.2 PG/ML (18.5-88.0)
== END ==
LOC: M PLALAB 08:15
PROVIDERS: ATTEND Nurse Practitioner Family
DX: E55.9 Vitamin D deficiency, unspecified (principal); I10 Essential (primary) hypertension; E78.5 Hyperlipidemia, unspecified; M10.9 Gout, unspecified; R79.89 Other specified abnormal findings of blood chemistry